=== PATIENT | female | born 1940 | race Caucasian/White ===

== ENCOUNTER → 2021-05-04 13:37 | Outpatient (CLI) | payer MEDICARE, SELFPAY ==
--- NOTE | ~2021-05-04 | XR_ITS ---
EXAMINATION: XR knee RT 3V DATE: 05/04/2021 14:10 INDICATION: Pain in unspecified knee. TECHNIQUE: 3 views of right knee including standing views were obtained. COMPARISON: Right knee radiograph 09/12/2017 FINDINGS: There is a total right knee arthroplasty with patellar resurfacing in near-anatomic alignme nt. No fracture. No periprosthetic lucencies to suggest loosening or infection. No knee joint effusio n. IMPRESSION: 1. Total right knee arthroplasty in near-anatomic alignment. Reviewed, dictated and finalized at location E. NCIAL COACH
== END ==
PROVIDERS: Visit Provider Emergency Medicine
DX: M25.569 Pain in unspecified knee (principal); R53.1 Weakness; Z96.651 Presence of right artificial knee joint
CPT/HCPCS: 73562

== ENCOUNTER 2021-05-05 09:42 | Observation (INO) | payer MEDICARE, SELFPAY ==
[2021-05-05] VITALS (12 sets, daily range): BP systolic 122–174; BP diastolic 57–78; PULSE 70–91; RESP 13–21; TEMP 36.1–36.9; O2SAT 92–97; BMI 104.9
--- NOTE | ~2021-05-05 | CT_ITS ---
EXAMINATION: CT chest abdomen pelvis w con DATE: 05/05/2021 15:41 INDICATION: Mass in left lung upper lobe. TECHNIQUE: Computed tomography (CT) of the chest, abdomen, and pelvis was performed with 100 mL Omnip aque 350 intravenous contrast. Automated exposure control and iterative reconstruction technique were employed. The dose-length product was 1951.95 mGy-cm. COMPARISON: Chest single view 05/05/2021, mammogram 03/27/19 FINDINGS: CHEST CT: The lungs demonstrate mild atelectasis. There is an 8 mm nodule in left lower lobe. There is a 4 mm n odule in left upper lobe. There is a 19 mm nodule in left upper lobe. No pleural effusion. The heart size is normal. There are coronary artery calcifications. No pericardial effusion. There is a small s liding hernia. There are surgical changes in left breast. There is skin thickening of left breast wit h skin retraction, likely chronic. There is severe cervical and thoracic spondylosis. ABDOMEN/PELVIS CT: There are cysts in the liver measuring up to 17 mm. The gallbladder, spleen, pancreas, and adrenal gl ands are normal. There is cortical thinning of the kidneys. There is are cysts in right kidney measur ing up to 4.6 cm. There is diverticulosis of the colon without evidence of diverticulitis. There are no dilated loops of bowel. The appendix is normal. There are no pathologically enlarged lymph nodes. There is no free intraperitoneal fluid. There is a total left hip arthroplasty. There is severe lumba r spondylosis. IMPRESSION: 1. 19 mm and 8 mm nodules in left lung suspicious for malignancy. Consider CT-guided biopsy of the 19 mm nodule. Reviewed, dictated and finalized at location E. RONMENTAL CONFLICT MANAGER IMPRESSION: 1. 19 mm and 8 mm nodules in left lung suspicious for malignancy. Consider CT-g uided biopsy of the 19 mm nodule.
--- NOTE | ~2021-05-05 | CT_ITS ---
EXAMINATION: CTA brain carotid EXAM DATE: 05/05/2021 12:38 INDICATION: Facial droop TECHNIQUE: Spiral CTA of the carotid arteries was performed with intravenous injection 100 cc of Om nipaque 350. Axial, coronal, sagittal reformatted images reviewed. Additional reformatted images cre ated on dedicated 3-D workstation. NASCET comparable standard used to assess the degree of arterial stenosis. Spiral CT angiogram cerebral arteries performed with the same intravenous injection of con trast. Source images of the brain CTA transferred to dedicated workstation for 3-D rotational image c reation. Coronal, sagittal maximum intensity pixel images also reviewed. The dose-length product (D LP) for this examination was 1152.76 mGy-cm. The exposure was tailored according to patient size, a nd iterative reconstruction (ASIR) was used as additional dose reduction technique. Correlation is ma de to head CT earlier same date. FINDINGS: Mild left carotid bulb arteriosclerosis, 0% carotid stenosis bilaterally. The right vertebral artery is dominant. Mild scattered vertebral basilar and intracranial carotid arteriosclerosis without steno sis. There is left-sided posterior communicating artery dominant posterior cerebral artery. There i s no carotid or vertebral basilar arterial dissection or fibromuscular dysplasia. There are no cerebr al artery aneurysms. There is symmetric cerebral artery arborization. The sagittal, transverse and si gmoid sinuses enhance normally, no venous sinus thrombosis. Internal cerebral veins also enhance norm ally. 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 Cervical spondylosis. IMPRESSION: 1. Spiculated left upper lobe mass; CT-guided biopsy indicated. 2. Bilateral carotid bulb 0% stenosis. 3. No acute carotid or intracranial findings. Reviewed, dictated and finalized at location B. SOFTWARE DEVELOPER
--- NOTE | ~2021-05-05 | US_ITS ---
EXAMINATION: US carotid duplex BI DATE: 05/05/2021 14:33 INDICATION: Facial droop . Speech-language deficit, facial weakness, disturbance of skin sensation an d unspecified hemiparesis. TECHNIQUE: Grayscale, color Doppler, and pulsed Doppler images of the cervical carotid arteries were obtained. The degree of vessel stenosis is placed in one of the following categories: normal, <50%, 5 0-69%, >=70% but less than near-occlusion, near-occlusion, or total occlusion. Note that percent sten osis relative to normal distal artery lumen diameter is indirectly measured from velocity measurement s as described by Miller, et al. Radiology 2003; 229:340-346. COMPARISON: Carotid CT angiogram dated 05/05/2021 FINDINGS: RIGHT: The right common carotid artery (CCA) peak systolic velocity (PSV) is 117 cm/s. The right internal ca rotid artery (ICA) PSV is 61 cm/s. The right ICA end-diastolic velocity (EDV) is 10 cm/s. The right I CA/CCA PSV ratio is 0.5. Grayscale and color Doppler images yield an estimate of <50% diameter reduct ion from plaque in the ICA. The external carotid artery (ECA) PSV is 103 cm/s. There is antegrade bell w in the right vertebral artery. LEFT: The left CCA PSV is 141 cm/s. The left ICA PSV is 75 cm/s. The left ICA EDV is 11 cm/s. The left ICA/ CCA PSV ratio is 0.5. Grayscale and color Doppler images yield an estimate of <50% diameter reduction from plaque in the ICA. The ECA PSV is 84 cm/s. There is antegrade flow in the left vertebral artery . IMPRESSION: 1. <50% stenosis in the right internal carotid artery. 2. <50% stenosis in the left internal carotid artery. Reviewed, dictated and finalized at location A. E ASSEMBLER AND SWAGER
--- NOTE | ~2021-05-05 | MR_ITS ---
EXAMINATION: MR brain/brain stem wo/w con DATE: 05/05/2021 17:25 INDICATION: Facial weakness. TECHNIQUE: Magnetic resonance imaging (MRI) of the brain and brainstem was performed without and with 20 mL MultiHance intravenous contrast. Sequences included sagittal and axial T1-weighted FSE, axial diffusion-weighted FS EPI, axial T2*-weighted GRE, axial T2-weighted FLAIR Propeller, and axial T2-we ighted Propeller. Postcontrast sequences included axial and coronal T1-weighted FSE. Apparent diffusi on coefficient (ADC) maps were created. COMPARISON: Head CT 05/05/2021 FINDINGS: There is an acute infarct in the wilfrid on the left. There is a punctate acute infarct in rig ht parietal lobe. There are scattered areas of nonspecific increased T2-weighted signal intensity in the cerebral white matter, which is within normal limits for the patient's age. There is no intracran ial hemorrhage or abnormal mass lesion. The ventricles are normal in size. There are likely changes o f ocular lens replacement surgeries. There is mild mucosal thickening in the ethmoid sinuses. The mas toid air cells are normal. IMPRESSION: 1. 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 Reviewed, dictated and finalized at location E. TLE INSPECTOR
--- NOTE | ~2021-05-05 | XR_ITS ---
EXAMINATION: XR chest 1V EXAM DATE: 05/05/2021 10:21 INDICATION: Slurred speech and facial droop, CVA TECHNIQUE: Portable AP frontal chest x-ray was obtained. There is no prior study for comparison. FINDINGS: There is ill-defined approximately 1.5 cm density projecting over left upper lobe, could be acute infectious process or intraparenchymal lung nodule, granuloma or malignancy. There are no ple ural effusions. The cardiomediastinal silhouette is within normal limits. There is no pneumothorax suspected. 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 IMPRESSION: Left upper lobe nodular density, differential considerations including acute infection, g ranuloma, malignancy. Clinical correlation. Consider follow-up PA and lateral chest x-ray in 2 weeks. Reviewed, dictated and finalized at location B. BASIC IMPRESSION: Left upper lobe nodular density, differential considerations includ ing acute infection, granuloma, malignancy. Clinical correlation. Consider foll ow-up PA and lateral chest x-ray in 2 weeks.
--- NOTE | ~2021-05-05 | CT_ITS ---
EXAMINATION: CT brain wo con EXAM DATE: 05/05/2021 10:14 INDICATION: Slurred speech, facial droop. Right leg weakness. TECHNIQUE: Spiral CT of the head was performed without contrast. Axial, coronal and sagittal images were reviewed. The dose-length product (DLP) for this examination was 605.33 mGy-cm. The exposure w as tailored according to patient size, and iterative reconstruction (ASIR) was used as additional dos e reduction technique. There are no prior studies for comparison. FINDINGS: There is no acute intraparenchymal hemorrhage. No evidence of intraparenchymal brain mass lesion. No evidence of acute infarction. There is no mass effect or midline shift. The ventricles are normal in size. There are no extra-axial collections. There are no acute calvarial fractures. P rosalina has had bilateral ocular lens surgery. Soft tissue is unremarkable. The visualized sinuses a nd mastoid air cells are well aerated. IMPRESSION: No acute intracranial findings. Reviewed, dictated and finalized at location B. OAT CAPTAIN
[2021-05-05 09:53] LABS: Glucose Point of Care 164 mg/dl (65-105)
--- NOTE | 2021-05-05 09:57 | ECG_ITS ---
Measurements Intervals [place] Rate: 90 P: 9 OR: 146 QRS: -33 QRSD: 106 T: 17 QT: 356 QTc: 437 Interpretive Statements SINUS RHYTHM LEFT AXIS DEVIATION POOR R WAVE PROGRESSION, ANTERIOR LEADS BORDERLINE ST-T WAVE ABNORMALITY- HIGH LATERAL LEADS BASELINE ARTIFACT- I, II, III, AVR, AVL, AVF BORDERLINE ECG Electronically Signed On 05-05-2021 10:20:58 EXEC. CREATIVE DIRECTOR by Aguila Garcia D.O.
[2021-05-05 10:12] LABS: Basophils Absolute Auto 0.1 K/mm3 (0.0-0.1); Basophils Percent Auto 0.6 % (0.2-1.2); Hematocrit 43.4 % (37.0-47.0); Hemoglobin 13.6 g/dL (12.0-15.0); Immature Granulocyte Absolute 0.13 K/mm3 (0.00-0.031); Immature Granulocyte Percent A 1.1 % (0-0.5); Lymphocytes Absolute Auto 3.09 K/mm3 (0.9-3.2); Lymphocytes Percent Auto 26.4 % (18.3-44.2); Mean Corpuscular HGB Conc 31.3 g/dl (32-36); Mean Corpuscular Hemoglobin 27.8 pg (26-34); Mean Corpuscular Volume 88.8 fl (80-100); Mean Platelet Volume 9.7 fl (7.4-10.4); Monocytes Absolute Auto 0.7 K/mm3 (0.1-0.6); Monocytes Percent Auto 5.8 % (2.6-8.5); Neutrophils Absolute Auto 7.7 K/mm3 (1.3-6.7); Neutrophils Percent Auto 66.1 % (45.5-73.1); Platelet Count Result 323 k/mm3 (150-375); Red Blood Count 4.89 M/mm3 (4.2-5.4); Red Cell Distribution Width 14.2 % (11.5-14.5); White Blood Count 11.7 K/mm3 (4.5-10.0)
[2021-05-05 10:25] LABS: Alanine Aminotransferase 19 U/L (4-35); Albumin Level 4.6 g/dL (3.5-5.1); Alkaline Phosphatase 91 U/L (38-126); Anion Gap 11 mmol/L (8-16); Aspartate Amino Transferase 24 U/L (14-36); Bilirubin,Total 0.4 mg/dL (0.2-1.3); Blood Urea Nitrogen 19 mg/dL (7-17); Calcium 9.6 mg/dL (8.4-10.2); Carbon Dioxide 23 mmol/L (22-30); Chloride 103 mmol/L (98-107); Estimated CRCL calculation 69 ml/min; Estimated Glomerular Filt Rate > 60; Glucose 175 mg/dL (65-110); Potassium 3.8 mmol/L (3.4-5.0); Sodium 137 mmol/L (137-145)
[2021-05-05 10:32] LABS: Prothrombin Time 13.1 Seconds (11.1-14.7)
[2021-05-05 10:36] LABS: Troponin I < 0.012 ng/mL (0.000-0.034)
[2021-05-05 10:46] LABS: Partial Thromboplastin Time < 20.0 SECONDS (22.3-36.8)
--- NOTE | 2021-05-05 12:09 | ED.NEUROSD ---
HPI - Neuro Symptoms/Deficit General Chief Complaint: Suspected CVA Stated Complaint: ?CVA Time Seen by Provider: 05/05/21 10:54 History of Present Illness HPI Narrative: Patient is a 80-year-old female who presents ER with concerns for possible CVA. Reports she had right leg weakness?that she called her PCP about and he ordered an outpatient x-ray. She reports her strength not like improved throughout the day yesterday. Reports that today she had right-sided facial droop with slurred speech. Lasted approximately 1 hour. Still has some mild weakness in the right side. No numbness or tingling. No history of previous CVA. No chest pain or chest pressure. No loss of consciousness. Related Data Home Medications Medication Instructions Recorded Confirmed blood sugar diagnostic #10 each 05/05/19 05/05/21 loratadine 10 mg tablet 10 mg PO DAILY 12/23/19 05/05/21 Allergies Allergy/AdvReac Type Severity Reaction Status Date / Time No Known Allergies Allergy Verified 05/05/21 17:51 Review of Systems Review of Systems: All systems reviewed & are unremarkable except as noted in HPI and below Constitutional: Constitutional: Denies chills, Denies fever(s) and Denies weakness ENT: Denies sinus pressure and Denies sore throat Cardiovascular: Cardiovascular: Denies chest pain and Denies rapid heart rate Respiratory: Respiratory: Denies cough, Denies dyspnea and Denies wheezing Gastrointestinal: Gastrointestinal: Denies abdominal pain, Denies diarrhea, Denies nausea and Denies vomiting Neurologic: Denies syncope, Denies tingling and Denies paresthesias Comments: Right-sided facial droop and slurred speech PMFSH Past Medical History Medical History Diabetes mellitus HTN (hypertension) Hx of breast cancer chemo and radiation Hx of cataract Hx of thyroid cancer Hypothyroidism (acquired) Surgical History Surgical History H/O lumpectomy H/O thyroidectomy History of bilateral knee replacement History of left hip replacement History of tonsillectomy Hx of bilateral cataract extraction Family History Family History Father Acute myocardial infarction, Onset Age: 84 Mother Family history of malignant neoplasm, Onset Age: 64 Social History Social History Social History: She is and lives alone with her cat. She has 2 children and no poa. She still continues to work for [employer]. She is a lifelong nonsmoker. She does not use any alcohol marijuana or illicit drugs. Code status full code Smoking status: Never smoker Alcohol intake: never Substance use: never Substance use type: does not use Spiritual care concerns: No Exam Narrative: GENERAL: Well-appearing, well-nourished, and in no acute distress. HEAD: Normocephalic, atraumatic. EYES: PERRLA and EOMI. ENT: Mucous membranes moist. Normal-appearing posterior oropharynx. CHEST: Clear to auscultation. No respiratory distress. HEART: Regular rate and rhythm. Normal peripheral pulses. ABDOMEN: Soft, nontender, nondistended EXTREMITIES: Normal range of motion. No edema. SKIN: Warm, dry, no rash. NEURO: Very mild right-sided facial weakness with patient speaking a left-sided mouth. No slurred speech or expressive aphasia. No upper or lower extremity drift. Sensation intact. Normal [id number] and [id number] testing. Alert and oriented x3. PSYCH: Normal mood and affect. Course Course Emergency Course: Neurology consulted. Recommends oral aspirin. Patient not felt to be a good candidate for TPA given very mild facial droop. Patient also had symptoms yesterday that could represent stroke and should be beyond 4 hours past those symptoms. Discussed this with patient and daughter who agree that they
[2021-05-05] MEDS: ASPIRIN 325 MG TABLET PO (12:25)
--- NOTE | 2021-05-05 12:56 | PM.IMHP ---
H&P: HPI History of Present Illness Date/Time: 05/05/21 12:56 this is a 80-year-old female patient who was having difficulty walking yesterday. She stated that she was having some weakness to her right leg. She has had a history of having a total right knee replacement in the past. Her strength did not improve throughout the day yesterday however it is much better today. She stated it feels like her normal strength in that leg today. However she reported that she had some right-sided facial droop and slurred speech earlier today. It lasted approximately 1 hour she still has a mild droop to the right side of her face but has symmetric smile. She has no focal weakness. No prior history of CVA. The patient states that she takes a low-dose aspirin every day. She did not lose consciousness. She had a head and neck CTA that was read as spiculated left upper lobe mass CT-guided biopsy indicated. Bilateral carotid bulb 0% stenosis no acute carotid or intracranial findings. This was discussed with the patient. She stated that she did have a history of thyroid and breast cancer on the left side. Chest x-ray was read as left upper lobe nodular densities differential consideration including acute infection, granuloma, malignancy. Clinical correlation. Consider follow-up PA and lateral chest x-ray in [address] was read as no acute intracranial findings. She had a knee x-ray that was dated 07/23/2019 to that reads total right knee arthroplasty in near anatomic alignment. The patient was given a full-strength aspirin. The patient is being admitted to observation status on the date of service of 05/05/2021. Chief Complaint: Stroke-like symptoms with facial droop Review of Systems Review of Systems: All systems reviewed & are unremarkable except as noted in HPI and below Constitutional: Constitutional: Reports as per HPI and Reports no additional constitutional complaints Eyes: Eyes: Reports as per HPI and Reports no additional eye complaints ENT: Reports system reviewed and no additional complaints, except as documented and Reports Normal hearing present Cardiovascular: Cardiovascular: Reports no additional cardiovascular complaints Respiratory: Respiratory: Reports no additional respiratory complaints and Reports no additional respiratory complaints Gastrointestinal: Gastrointestinal: Reports as per HPI and Reports no additional gastrointestinal complaints Musculoskeletal: Musculoskeletal: Reports no additional musculoskeletal complaints Integumentary/Breasts: Skin/Breast: Reports system reviewed and no additional complaints, except as docu and Reports as per HPI Neurologic: Reports system reviewed and no additional complaints, except as documented, Reports as per HPI and Reports Normal hearing present Psychiatric: Psychiatric: Reports no additional psychiatric complaints and Reports as per HPI Endocrine: Endocrine: Reports no additional endocrine complaints Hematologic/Lymphatic: Hematologic/Lymphatic: Reports no additional hematologic/lymphatic complaints Allergic/Immunologic: Allergic/Immunologic: Reports no additional allergic/immunologic complaints PMFSH Past Medical History Medical History Diabetes mellitus HTN (hypertension) Hx of breast cancer chemo and radiation Hx of cataract Hx of thyroid cancer Hypothyroidism (acquired) Surgical History Surgical History (Updated 05/05/21 @ 13:00 by Linda Claros NP) H/O lumpectomy H/O thyroidectomy History of bilateral knee replacement History of left hip replacement History of tonsillectomy Hx of bilateral cataract extraction Family History Family History Father Acute myocardial infarction, Onset Age: 84 Mother Family history of malignant neoplasm, Onset Age: 64 Social History Social History (Updated 05/05/21 @ 14:44 by Linda Ruiz
[2021-05-05 13:58] LABS: SARS-CoV-2 RNA PCR Negative
--- NOTE | 2021-05-05 16:35 | ADMGEN ---
This patient, Selina Qiu, was admitted to 3 [facility] Surg Room 304-01. Patient/family oriented to hospital policies and general routines including ID bracelet, bed and alarms, visiting hours, pain management, procedures, bathroom and other care routines, personal items, smoking policy, room service/diet, and visiting hours. Pt placed on groundwater monitoring technician per MD orders. Reviewed plan of care Information on how to activate the Rapid Response Team has been discussed. Patient/Family are encouraged to report perceived risks to care and to ask questions if they do not understand what they are told or what they should do.
--- NOTE | 2021-05-05 16:35 | WPDNEURCNPN ---
Assessment and Plan Additional Plan 1 TIA 2 .rule out brain tumor 3. Plan as ordered Consult date: 05/06/21 HPI: Selina Qiu is a 80 year old female admitted to the hospital through the emergency room for the possibility of cerebrovascular accident and with complaints of right lower extremity weakness for which she initially called the primary care physician who ordered thet evaluation as an outpatient, she visited the emergency room when she developed a right-sided facial droop along with slurred speech lasting for [id number] with mild weakness on the right side as well but no sensory symptomatology and no associated generalized symptomatology. Patient has been taking Tylenol as an outpatient along with loratadine. she is not allergic to any medication. Patient does have ongoing history of 1. Diabetes mellitus 2. Hypertension 3. Breast cancer with the history of chemotherapy and radiation therapy 4. Thyroid cancer and 5. Hypothyroidism. She has undergone lumpectomy, thyroidectomy, bilateral knee replacement, left hip replacement, tonsillectomy, and bilateral cataract extraction. Evaluation up until now includes negative CT scan of the head, negative CTA of the brain with no stenosis but incidental finding of his spiculated left upper lobe mass for which biopsy was suggested, less than 50% stenosis bilaterally on the carotid ultrasound, and CT of the chest, abdomen and pelvis with contrast documenting [id number] nodules in left lung suspicious for the malignancy for which biopsy was suggested. SARS-CoV-2 id negative and blood sugar of 175 Review of Systems Review of Systems: All systems reviewed & are unremarkable except as noted in HPI and below PMFSH Past Medical History Medical History Diabetes mellitus HTN (hypertension) Hx of breast cancer chemo and radiation Hx of cataract Hx of thyroid cancer Hypothyroidism (acquired) Surgical History Surgical History H/O lumpectomy H/O thyroidectomy History of bilateral knee replacement History of left hip replacement History of tonsillectomy Hx of bilateral cataract extraction Family History Family History Father Acute myocardial infarction, Onset Age: 84 Mother Family history of malignant neoplasm, Onset Age: 64 Social History Social History Social History: She is and lives alone with her cat. She has 2 children and no poa. She still continues to work for [employer]. She is a lifelong nonsmoker. She does not use any alcohol marijuana or illicit drugs. Code status full code Smoking status: Never smoker Alcohol intake: never Substance use: never Substance use type: does not use Spiritual care concerns: No Meds Home Medications and Allergies Home Medications Medication Instructions Recorded Confirmed Type blood sugar diagnostic #10 each 05/05/19 05/05/21 History blood-glucose meter #1 each 05/06/19 05/05/21 Rx loratadine 10 mg tablet 10 mg PO DAILY 12/23/19 05/05/21 History amlodipine 5 mg tablet See Rx Instructions .ROUTE 06/01/20 05/05/21 Rx .COMPLEX #90 each levothyroxine 175 mcg tablet See Rx Instructions .ROUTE 08/09/20 05/05/21 Rx .COMPLEX #90 ea metformin 500 mg tablet See Rx Instructions .ROUTE 11/29/20 05/05/21 Rx .COMPLEX #180 tablet montelukast 10 mg tablet 10 mg PO DAILY #90 tablet 02/14/21 05/05/21 Rx losartan 50 mg-hydrochlorothiazide 1 tablet PO .daily am #90 tablet 03/01/21 05/05/21 Rx 12.5 mg tablet cholecalciferol (vitamin D3) 1,250 50,000 unit PO WEEKLY #12 cap 03/07/21 05/05/21 Rx mcg (50,000 unit) capsule Allergies Allergy/AdvReac Type Severity Reaction Status Date / Time No Known Allergies Allergy Verified 05/05/21 17:51 Vital Signs Vital Signs
--- NOTE | 2021-05-05 16:48 | PC.NURSE ---
Pt to MRI via wheelchair, will complete interview when pt returns
[2021-05-05 16:51] LABS: Glucose Point of Care 123 mg/dl (65-105)
--- NOTE | 2021-05-05 17:35 | PC.NURSE ---
Pt returned from MRI
[2021-05-05 21:16] LABS: Glucose Point of Care 109 mg/dl (65-105)
[2021-05-06] VITALS (9 sets, daily range): BP systolic 124–144; BP diastolic 59–68; PULSE 69–83; RESP 18–20; TEMP 36.5–36.9; O2SAT 95–97
--- NOTE | 2021-05-06 | ECHO_ITS ---
Patient Info Name: Selina Qiu Age: 80 years : 1940 Gender: Female Ht: 65 in Wt: 300 lbs BSA: 2.58 m2 HR: 84 bpm BP: 144 / 59 mmHg Heart Rhythm: Sinus Rhythm Technical Quality: Fair Exam Date: 05/06/2021 9:07 AM Exam Location: [facility] Pulmonary Patient Status: Outpatient Admit Date: 05/05/2021 Staff Ordering Physician: Linda Claros NP Reimbursement Spec: Sri Tavares RDCS Attending Provider: Altaf Mckeon MD Referring Physician: Harlan EAGLE; Exam Type: CA echo dop bubble study w con Study Info Indications - tia Complete two-dimensional, color flow and Doppler transthoracic echocardiogram is performed. Summary 1. Complete two-dimensional, color flow and Doppler transthoracic echocardiogram is performed. 2. Left ventricular chamber dimension is normal. 3. Definity contrast administered improved wall motion interpretation. 4. Left ventricular systolic function is hyperdynamic, estimated at >70%. 5. The left ventricular diastolic function is grade I diastolic dysfunction. 6. E/e' 10 is mildly elevated. 7. There is mild aortic valve sclerosis. 8. The mitral valve has severely calcified posterior annulus. 9. No pulmonary hypertension, estimated pulmonary arterial systolic pressure is 25 mmHg. Left Ventricle E/e' 10 is mildly elevated. Definity contrast administered improved wall motion interpretation. Left ventricular chamber dimension is normal. Left ventricular systolic function is hyperdynamic, estimated at >70%. The left ventricular diastolic function is grade I diastolic dysfunction. Right Ventricle Right ventricular systolic function is normal and with normal TAPSE 2.7 cm. Right ventricular chamber dimension is normal. Left Atria Left atrial chamber dimension is mildly enlarged. Right Atria Right atrial chamber dimension is normal. Atrial Septum Agitated saline injection with and without valsalva maneuver opacified right sided cardiac chambers without shunt to left side cardiac chambers. Intact interatrial septum visualized by 2D and agitated saline imaging. Aortic Valve The aortic valve is trileaflet. There is mild aortic valve sclerosis. There is no aortic valve stenosis. There is no aortic valve regurgitation. Pulmonic Valve There is no pulmonic regurgitation. Mitral Valve The mitral valve has severely calcified posterior annulus. Mitral valve leaflets are not well seen. There is no mitral valve stenosis. There is no mitral valve regurgitation. Tricuspid Valve There is no tricuspid valve regurgitation. No pulmonary hypertension, estimated pulmonary arterial systolic pressure is 25 mmHg. Pericardium/Pleural There is no pericardial effusion. Inferior Vena Cava Normal inferior vena cava with >50% collapse upon inspiration consistent with normal right atrial pressure, 5 mmHg. Aorta The aortic root size at the sinus of Valsalva is normal. Left Ventricular Outflow Tract Name Value Normal LVOT 2D LVOT Diameter 2.0 cm LVOT Doppler LVOT Peak Gradient 6 mmHg LVOT Mean Gradient 3 mmHg
[2021-05-06 06:18] LABS: Basophils Absolute Auto 0.1 K/mm3 (0.0-0.1); Basophils Percent Auto 0.8 % (0.2-1.2); Hematocrit 39.3 % (37.0-47.0); Hemoglobin 12.3 g/dL (12.0-15.0); Immature Granulocyte Absolute 0.07 K/mm3 (0.00-0.031); Immature Granulocyte Percent A 0.8 % (0-0.5); Lymphocytes Percent Auto 22.4 % (18.3-44.2); Mean Corpuscular HGB Conc 31.3 g/dl (32-36); Mean Corpuscular Hemoglobin 27.8 pg (26-34); Mean Corpuscular Volume 88.7 fl (80-100); Mean Platelet Volume 9.7 fl (7.4-10.4); Monocytes Absolute Auto 0.6 K/mm3 (0.1-0.6); Monocytes Percent Auto 6.5 % (2.6-8.5); Neutrophils Absolute Auto 6.2 K/mm3 (1.3-6.7); Neutrophils Percent Auto 69.5 % (45.5-73.1); Platelet Count Result 243 k/mm3 (150-375); Red Blood Count 4.43 M/mm3 (4.2-5.4); Red Cell Distribution Width 14.3 % (11.5-14.5); White Blood Count 8.9 K/mm3 (4.5-10.0)
[2021-05-06 06:28] LABS: Hemoglobin A1C 6.4 % (<5.7)
[2021-05-06 06:34] LABS: Alanine Aminotransferase 14 U/L (4-35); Alkaline Phosphatase 82 U/L (38-126); Anion Gap 8 mmol/L (8-16); Aspartate Amino Transferase 19 U/L (14-36); Bilirubin,Total 0.5 mg/dL (0.2-1.3); Blood Urea Nitrogen 14 mg/dL (7-17); CRP 1.1 mg/dL (<1.0); Calcium 9.3 mg/dL (8.4-10.2); Carbon Dioxide 30 mmol/L (22-30); Chloride 100 mmol/L (98-107); Estimated CRCL calculation 116 ml/min; Estimated Glomerular Filt Rate > 60; Glucose 144 mg/dL (65-110); Magnesium 2.2 mg/dL (1.6-2.3); Sodium 138 mmol/L (137-145)
[2021-05-06 07:42] LABS: Thyroid Stimulating Hormone Reflex 0.158 uIU/mL (0.465-4.68)
[2021-05-06 08:12] LABS: Glucose Point of Care 144 mg/dl (65-105)
[2021-05-06 08:20] LABS: Free T4 Free Thyroxine Reflex 1.63 ng/dL (0.78-2.19)
[2021-05-06] MEDS: ASPIRIN 325 MG TABLET PO (09:01)
[2021-05-06] MEDS: PERFLUTREN LIPID MICROSPHERES 1.5 ML VIAL DILUTED TO 10 ML TOTAL VOLUME IV PUSH (09:50)
--- NOTE | 2021-05-06 09:50 | IVDEFINITY ---
Prior to administration of IV Definity the patient was educated on the risks and benefits of the imaging enhancing agent including potential adverse side effects. The patient verbalized understanding. Allergies were verified. No exclusion criteria were identified and at least one of the following inclusion criteria were met: 1) physician request, 2) patient technically difficult to image (per the [place] [employer] guidelines of two or more segments not discernable within the apical view), or 3) questionable left ventricular function. ?
--- NOTE | 2021-05-06 10:33 | PM.IMPN ---
Progress Note: A&P Assessment and Plan (1) Stroke-like symptom: Code(s): R29.90 - Unspecified symptoms and signs involving the nervous system Status: Acute Assessment and Plan: Neurology consulted Continue ASA CT of the brain did not show a CVA Echo pending Neuro checks q 4 hours Tele monitoring (2) Mass of left lung: Code(s): R91.8 - Other nonspecific abnormal finding of lung field Status: Acute Assessment and Plan: Consult to Dr. Chance , will await recommendations (3) Hypothyroidism (acquired): Code(s): E03.9 - Hypothyroidism, unspecified Status: Acute Assessment and Plan: TSH low Continue with levothyroxine Repeat labs in 6 weeks (4) HTN (hypertension): Code(s): I10 - Essential (primary) hypertension Status: Acute Assessment and Plan: Continue home dose of Norvasc and losartan Monitor (5) Diabetes mellitus: Code(s): E11.9 - Type 2 diabetes mellitus without complications Status: Acute Assessment and Plan: Accu-Cheks AC and HS Hold orals SSI Monitor (6) CVA (cerebral vascular accident): Code(s): I63.9 - Cerebral infarction, unspecified Status: Acute Assessment and Plan: MRI-->Acute infarcts involving the wilfrid and right parietal lobe Neurology consulted Continue ASA Statin initiated CT of the brain did not show a CVA Echo pending Neuro checks q 4 hours Tele monitoring Subjective Date/time seen: 05/06/21 10:33 Interval history: Pt seen and evaluated; labs, vs, diagnostic results reviewed; pt denies any weakness, BARNETT, SOB, CP; echo in progress Review of Systems Review of Systems: All systems reviewed & are unremarkable except as noted in HPI and below Exam Const: General: no acute distress, alert and awake Orientation/consciousness: patient oriented x3 HENMT: Head: normocephalic and atraumatic Ears: hearing grossly normal bilaterally and external ears normal Face and sinus: face symmetric Mouth: Yes Normal oral and palatal mucosa present Eyes: EOM: EOMs intact bilaterally Neck: Neck: full ROM, trachea midline and no JVD Resp: Effort & Inspection: normal respiratory effort Auscultation: clear to auscultation bilaterally Cardio: Jugular venous distension: no JVD Rate: regular rate Rhythm: regular rhythm Heart sounds: S1 normal heart sound present and S2 normal heart sound present GI: Inspection: obesity GI Palp: Yes Soft to palpation Auscultation: normal bowel sounds : General: Yes no CVA tenderness Skin: General skin exam: normal color Rashes: no rashes Neuro: General: patient oriented x3 and no focal motor deficits Speech: normal speech Extrem: General: full ROM and no clubbing, cyanosis or edema Psych: Appearance: grossly normal Affect: normal affect Judgement: Good judgement present (Psych) Objective Data Vital Signs Vital Signs: Vital Signs - 24 hr 05/05/21 10:51 05/05/21 12:01 05/05/21 12:47 Temperature Pulse Rate 81 82 83 Respiratory Rate 20 20 21 H Blood Pressure 150/70 H 159/72 H Pulse Oximetry 96 95 97 05/05/21 12:49 05/05/21 14:41 05/05/21 15:53 Temperature Pulse Rate 84 79 Respiratory Rate 19 18 Blood Pressure 145/65 H 148/67 H Pulse Oximetry 97 92 97 05/05/21 16:29 05/05/21 16:33 05/05/21 16:41 Temperature 36.1 C L Pulse Rate 83 81 86 Respiratory Rate 18 18 Blood Pressure 174/76 H 145/65 H Pulse Oximetry 97 97 05/05/21 20:00 05/05/21 23:51 05/06/21 00:00 Temperature 36.6 C 36.9 C Pulse Rate 70 77 69 Respiratory Rate 20 20 Blood Pressure 122/57 L 132/62 Pulse Oximetry 95 96 05/06/21 03:53 05/06/21 04:00 Temperature 36.5 C Pulse Rate 79 70 Respiratory Rate 20 Blood Pressure 144/59 H Pulse Oximetry 95 Intake/Output Intake/Output: Intake & Output 05/03/21 05/04/21 05/05/21 05/06/21 23:59 23:59 23:59 23:59 Intake Total 120 490 Output Total 0 1000 Balance 120 -510
[2021-05-06 11:50] LABS: Total Triiodothyronine (T3) 1.24 NG/ML (0.97-1.69)
--- NOTE | 2021-05-06 12:44 | PDONCCN ---
HPI - Date of Consult Date/Time: 05/06/21 12:44 Requesting Physician: Ramses Mckeon MD Primary Care Provider: Brody Bhatia MD - Consult Narrative Reason for consult: Lung mass Narrative: Selina Qiu is a 80 year old female with history of left-sided breast cancer status post lumpectomy 14 years ago. She receive chemotherapy and radiation therapy and hormonal therapy for 5 years duration afterwards. She also has a history of thyroid cancer more than 30 years ago status post thyroidectomy. She denies any personal history of smoking but has been exposed with secondhand smoking from has been. She came into the hospital with right-sided facial droop and slurring of the speech started day prior to admission. She has been taking low-dose aspirin. She denies any headaches and seizures. She denies any pulmonary symptoms including shortness of breath chest pain and cough. Denies any hemoptysis. No other new complaints. CT head showed no acute intracranial findings. Brain MRI showed acute infarct involving the wilfrid and the right parietal lobe. CT chest abdomen pelvis showed 19 mm and 8 mm nodules in the left lung suspicious for malignancy. CT abdomen showed no evidence of metastatic disease. Review of Systems - Review of Systems All systems reviewed & are unremarkable except as noted in HPI and bel - Neurologic Reports system reviewed and no additional complaints, except as documented, Reports hearing normal, Denies syncope, Denies tingling, Denies paresthesias, Denies weakness PMFSH Medical History: Medical History (Last Reviewed 05/06/21 @ 11:29 by Alvaro Lopez MD) Diabetes mellitus HTN (hypertension) Hx of breast cancer chemo and radiation Hx of cataract Hx of thyroid cancer Hypothyroidism (acquired) Surgical History: Surgical History (Last Reviewed 05/06/21 @ 11:29 by Alvaro Lopez MD) H/O lumpectomy H/O thyroidectomy History of bilateral knee replacement History of left hip replacement History of tonsillectomy Hx of bilateral cataract extraction Family History: Family History (Last Reviewed 05/06/21 @ 11:29 by Alvaro Lopez MD) Father Acute myocardial infarction, Onset Age: 84 Mother Family history of malignant neoplasm, Onset Age: 64 - Social History Social History: Social History (Last Reviewed 05/06/21 @ 11:29 by Alvaro Lopez MD) Alcohol Use: Alcohol intake: never Substance Use: Substance use: never Substance use type: does not use Others: Spiritual care concerns: No Smoking Status: Smoking status: Never smoker Meds Home Medications Medication Instructions Recorded Confirmed Type blood sugar diagnostic #10 each 05/05/19 05/05/21 History blood-glucose meter #1 each 05/06/19 05/05/21 Rx loratadine 10 mg tablet 10 mg PO DAILY 12/23/19 05/05/21 History amlodipine 5 mg tablet See Rx Instructions .ROUTE 06/01/20 05/05/21 Rx .COMPLEX #90 each levothyroxine 175 mcg tablet See Rx Instructions .ROUTE 08/09/20 05/05/21 Rx .COMPLEX #90 ea metformin 500 mg tablet See Rx Instructions .ROUTE 11/29/20 05/05/21 Rx .COMPLEX #180 tablet montelukast 10 mg tablet 10 mg PO DAILY #90 tablet 02/14/21 05/05/21 Rx losartan 50 mg-hydrochlorothiazide 1 tablet PO .daily am #90 tablet 03/01/21 05/05/21 Rx 12.5 mg tablet cholecalciferol (vitamin D3) 1,250 50,000 unit PO WEEKLY #12 cap 03/07/21 05/05/21 Rx mcg (50,000 unit) capsule Allergies Allergy/AdvReac Type Severity Reaction Status Date / Time No Known Allergies Allergy Verified 05/05/21 17:51 Results - Labs CBC & Chem 7: 05/06/21 06:11 05/06/21 06:11 Labs: Short CBC 05/06/21 Range/Units 06:11 WBC 8.9 (4.5-10.0) K/mm3 Hgb 12.3 (12.0-15.0) g/dL Hct 39.3 (37.0-47.0) % Plt Count 243 (150-375) k/mm3 BMP 05/06/21 06:11 Sodium 138 Potassium 4.0 Chloride 100 Carbon Dioxide 30 BUN 14 D Creatinine 0.8
[2021-05-06] MEDS: LOSARTAN POTASSIUM 50 MG TABLET PO (14:55)
[2021-05-06] MEDS: LORATADINE 10 MG TABLET PO (14:56)
[2021-05-06] MEDS: hydroCHLOROthiazide 12.5 MG CAPSULE PO (14:56)
[2021-05-06] MEDS: amLODIPine BESYLATE 5 MG TABLET PO (14:56)
[2021-05-06] MEDS: MONTELUKAST SODIUM 10 MG TABLET PO (14:56)
[2021-05-06 16:42] LABS: Glucose Point of Care 109 mg/dl (65-105)
[2021-05-07] VITALS: PULSE 67
[2021-05-07 04:00] VITALS: BP 130/63; PULSE 68; PULSE 74; RESP 20; TEMP 36.6; O2SAT 90
[2021-05-07 06:36] LABS: Hematocrit 37.7 % (37.0-47.0); Hemoglobin 12.1 g/dL (12.0-15.0); Mean Corpuscular HGB Conc 32.1 g/dl (32-36); Mean Corpuscular Hemoglobin 27.6 pg (26-34); Mean Corpuscular Volume 85.9 fl (80-100); Mean Platelet Volume 9.7 fl (7.4-10.4); Platelet Count Result 274 k/mm3 (150-375); Red Blood Count 4.39 M/mm3 (4.2-5.4); Red Cell Distribution Width 14.4 % (11.5-14.5); White Blood Count 8.3 K/mm3 (4.5-10.0)
[2021-05-07 06:42] LABS: Anion Gap 10 mmol/L (8-16); Blood Urea Nitrogen 15 mg/dL (7-17); Calcium 8.9 mg/dL (8.4-10.2); Carbon Dioxide 26 mmol/L (22-30); Chloride 99 mmol/L (98-107); Estimated CRCL calculation 132 ml/min; Estimated Glomerular Filt Rate > 60; Glucose 142 mg/dL (65-110); Potassium 3.6 mmol/L (3.4-5.0); Sodium 135 mmol/L (137-145)
[2021-05-07 08:00] VITALS: PULSE 69
[2021-05-07] MEDS: hydroCHLOROthiazide 12.5 MG CAPSULE PO (09:33)
[2021-05-07] MEDS: amLODIPine BESYLATE 5 MG TABLET PO (09:33)
[2021-05-07] MEDS: ASPIRIN 325 MG TABLET PO (09:33)
[2021-05-07] MEDS: MONTELUKAST SODIUM 10 MG TABLET PO (09:34)
[2021-05-07] MEDS: LOSARTAN POTASSIUM 50 MG TABLET PO (09:34)
[2021-05-07] MEDS: LORATADINE 10 MG TABLET PO (09:34)
[2021-05-07] MEDS: ATORVASTATIN 20 MG TABLET PO (09:35)
--- NOTE | 2021-05-07 10:35 | PM.DS ---
DS: Admitting Diagnosis Discharge Date 05/07/2021 Admitting Diagnosis Leg weakness DS: Discharge Diagnosis Discharge Diagnosis (1) Stroke-like symptom: Code(s): R29.90 - Unspecified symptoms and signs involving the nervous system Status: Acute Assessment and Plan: Neurology consulted Continue ASA CT of the brain did not show a CVA Echo negative for vegetation MRI shows acute infarct Aspirin statin follow-up with neurology as outpatient (2) Mass of left lung: Code(s): R91.8 - Other nonspecific abnormal finding of lung field Status: Acute Assessment and Plan: Consult to Dr. Chance , plan for lung biopsy as outpatient (3) Hypothyroidism (acquired): Code(s): E03.9 - Hypothyroidism, unspecified Status: Acute Assessment and Plan: TSH low Continue with levothyroxine Repeat labs in 6 weeks (4) HTN (hypertension): Code(s): I10 - Essential (primary) hypertension Status: Acute Assessment and Plan: Continue home dose of Norvasc and losartan Monitor (5) Diabetes mellitus: Code(s): E11.9 - Type 2 diabetes mellitus without complications Status: Acute Assessment and Plan: Resume home medication (6) CVA (cerebral vascular accident): Code(s): I63.9 - Cerebral infarction, unspecified Status: Acute Assessment and Plan: MRI-->Acute infarcts involving the wilfrid and right parietal lobe Neurology consulted Continue ASA Statin initiated DS: Summary Hospital Course Hospital Course: Patient presented with leg weakness was found to have acute stroke started on aspirin and statin neurology was consulted CTA showed lung mass Heme-Onc was consulted plan for lung biopsy as outpatient Time Spent with Patient Time attestation: Total time spent providing and/or coordinating discharge services: DS: Data Data Completed and Pending Labs on day of discharge: Labs from last 24 hours 05/07/21 05/07/21 05/06/21 05:34 05:34 16:12 WBC 8.3 RBC 4.39 Hgb 12.1 Hct 37.7 MCV 85.9 MCH 27.6 MCHC 32.1 RDW 14.4 Plt Count 274 MPV 9.7 Sodium 135 L Potassium 3.6 Chloride 99 Carbon Dioxide 26 Anion Gap 10 BUN 15 Creatinine 0.70 Estim Creat Clear Calc 132 Estimated GFR > 60 Glucose 142 H POC Capillary Glucose 109 H Calcium 8.9 Total T3 05/06/21 06:11 WBC RBC Hgb Hct MCV MCH MCHC RDW Plt Count MPV Sodium Potassium Chloride Carbon Dioxide Anion Gap BUN Creatinine Estim Creat Clear Calc Estimated GFR Glucose POC Capillary Glucose Calcium Total T3 1.24 Discharge Plan Discharge Attending physician on discharge: Ana Deng M.A. Consulting providers: Alvaro Lopez ; Saud Chance Discharging Clinician: Ana Deng M.A. Patient Disposition: Home, Self-Care Activity: as tolerated Diet: heart healthy and diabetic Patient Instructions: Antibiotic Form Stand Alone Forms: General Discharge Information Follow-up/Referrals: Saud Chance MD [Physician] - Brody Bhatia MD [Primary Care Provider] - Alvaro Lopez MD [Physician] - Discharge Medications: New aspirin 325 mg Tablet 325 mg PO DAILY@0800 Qty: 30 RF: 0 atorvastatin 20 mg Tablet 20 mg PO DAILY Qty: 30 RF: 0 Continued (DME) Freestyle [employer] Test Strips Strip See Rx Instructions .ROUTE .MEDSUPPLY Qty: 10 RF: 0 (DME) blood-glucose meter [Freestyle [employer]] Misc See Rx Instructions .ROUTE .MEDSUPPLY Qty: 1 RF: 0 loratadine [Claritin] 10 mg tablet 10 mg PO DAILY RF: 0 amlodipine 5 mg tablet See Rx Instructions .ROUTE .COMPLEX Qty: 90 RF: 2 levothyroxine 175 mcg tablet See Rx Instructions .ROUTE .COMPLEX Qty: 90 RF: 2 metformin 500 mg tablet See Rx Instructions .ROUTE .COMPLEX Qty: 180 RF: 3 montelukast 10 mg tablet 10 mg PO DAILY Qty: 90 RF: 1 los
[2021-05-07 11:57] LABS: Glucose Point of Care 142 mg/dl (65-105)
[2021-05-07 11:58] LABS: Glucose Point of Care 109 mg/dl (65-105)
== END 2021-05-07 13:25 | disposition home or self-care (01) ==
LOC: ANHED 13:31 → ANH3MEDSUR 16:10
PROVIDERS: Emergency Medicine; Nurse Practitioner; Nurse Practitioner Adult Health; Admitting Provider Internal Medicine; Emergency Provider Emergency Medicine; PCP Emergency Medicine; Visit Provider Internal Medicine
DX: I63.9 Cerebral infarction, unspecified (principal); R91.8 Other nonspecific abnormal finding of lung field; R53.1 Weakness; I10 Essential (primary) hypertension; E11.9 Type 2 diabetes mellitus without complications; E89.0 Postprocedural hypothyroidism; I65.23 Occlusion and stenosis of bilateral carotid arteries; I35.8 Other nonrheumatic aortic valve disorders; Z85.850 Personal history of malignant neoplasm of thyroid; Z85.3 Personal history of malignant neoplasm of breast; Z92.21 Personal history of antineoplastic chemotherapy; Z92.3 Personal history of irradiation; Z79.82 Long term (current) use of aspirin; Z96.651 Presence of right artificial knee joint; Z20.822 Contact with and (suspected) exposure to COVID-19
CPT/HCPCS: 36415; 70450; 70496; 70498; 70553; 71045; 71260; 74177; 80048; 80053; 82728; 82948; 83036; 83605; 83735; 84439; 84443; 84480; 84484; 85025; 85027; 85610; 85730; 86140; 93005; 93880; 96374; 96375; 97161; 97165; 99285; A9270; A9577; C8929; C9803; G0378; Q9957; Q9967; U0003; U0005

== ENCOUNTER 2021-05-26 02:30 | Outpatient (CLI) | payer MEDICARE, SELFPAY ==
[2021-05-18 13:47] VITALS: BMI 47.4
--- NOTE | 2021-05-18 13:53 | PC.NURSE ---
Report to the Outpatient Waiting Room, entrance under the green pavilion located off [facility], at time _0900 on date ___05/26/21____. OR Time: _1100 . - You and your visitor will be asked a series of questions to screen for COVID 19 for your protection. - A mask is required within the hospital. Preoperative COVID Testing Requirements: No COVID Test needed if: (proof is required; if not received patient will have Rapid Test prior to entry) - Patient has received COVID Vaccine at least 14 days prior to procedure date or - Patient has positive COVID test result within last 90 days of surgery date. COVID Test needed if above criteria is not met If not COVID vaccinated a COVID test must be conducted within 72 hours of surgery and patient is asked to isolate self from time of testing until procedure. You will go to the [facility] for your COVID testing. The [facility] site is located at the corner of [address] from [facility]. You will only be called if COVID results are positive and your surgeon may reschedule your elective surgery date. NOTHING TO EAT OR DRINK 6 HOURS PRIOR TO PROCEDURE (0500) Take the following medications with a SIP of water the morning of surgery: _ALL ROUTINE MORNING MEDICATIONS Medications to discontinue per physician ___ASPIRIN 7 DAYS PRE OP Date to take last dose_05/18/21 Please no make-up, nail bangladeshi, hairspray, perfume, deodorant, or body powder the day of surgery. No jewelry (including any body piercings) or valuables the day of surgery, leave them at home. Please take a shower or bath the night before, or the morning of, surgery with an antibacterial soap. Wear comfortable, loose fitting clothing. Children are encouraged to wear pajamas. - Jewelry must be removed prior to entering the operating room. Rings and piercings that are not removed may be cut off. - The hospital will not accept responsibility for valuables. - Please leave all valuables, including medications, at home the day of surgery. If you are going home after surgery, a licensed bus driver must drive you home. - NO public transportation without another adult. - We recommend that an adult stay with you for 24 hours following discharge. - We also recommend that you do not drive, make important decision, drink alcoholic beverages, or take any drugs that were not prescribed by your health care provider for at least 24 hours after your discharge time. For Pediatric surgeries, we recommend two adults accompany the child home (only one inside the building at this time). One visitor will be allowed to accompany the patient into the hospital. Patients visitor will be instructed to remain with patient at all times or leave the building. We will allow the visitor to come back to the postoperative area when patient is ready. Follow any additional instructions given to you from your surgeon. Telephone instructions given to ___PATIENT and asked if any additional questions and then verbalized understanding. Patient advised to call surgeon office or pre surgery nurse liaison [phone] if any additional questions.
[2021-05-26] VITALS (10 sets, daily range): BP systolic 99–163; BP diastolic 41–85; PULSE 72–97; RESP 16–18; TEMP 37.1; O2SAT 94–100
--- NOTE | ~2021-05-26 | XR_ITS ---
EXAMINATION: XR chest 1V portable DATE: 05/26/2021 14:48 INDICATION: Left lung nodule status post percutaneous biopsy. TECHNIQUE: A single frontal view of the chest was obtained. COMPARISON: Chest single view at 1:01 PM FINDINGS: There is a nodule in left upper lobe. No pleural effusion or pneumothorax. The heart size i s normal. IMPRESSION: 1. Nodule in left lung upper lobe suspicious for primary bronchogenic carcinoma. Reviewed, dictated and finalized at location A. RD FILING CLERK IMPRESSION: 1. Nodule in left lung upper lobe suspicious for primary bronchogenic carcinoma .
--- NOTE | ~2021-05-26 | XR_ITS ---
EXAMINATION: XR chest 1V portable DATE: 05/26/2021 13:09 INDICATION: Left lung nodule status post percutaneous biopsy. TECHNIQUE: A single frontal view of the chest was obtained. COMPARISON: Chest single view at 1:01 PM FINDINGS: There is a nodule in left lung upper lobe. There are mild airspace opacities in the mid and lower lung zones, likely atelectasis. No pleural effusion or pneumothorax. The heart size is normal. There are surgical clips in left axilla. IMPRESSION: 1. Nodule in left lung upper lobe suspicious for primary bronchogenic carcinoma. 2. Mild airspace opacities in the mid and lower lung zones, likely atelectasis. Reviewed, dictated and finalized at location A. ERCIAL TRAILER TRUCK DRIVER IMPRESSION: 1. Nodule in left lung upper lobe suspicious for primary bronchogenic carcinoma . 2. Mild airspace opacities in the mid and lower lung zones, likely atelectasis.
--- NOTE | ~2021-05-26 | CT_ITS ---
EXAMINATION: CT biopsy lung w/imaging DATE: 05/26/2021 11:50 INDICATION: Left lung nodule. TECHNIQUE: The procedure including the risks, benefits, and alternatives and possibility of chest tub e placement were discussed with the patient. Risks discussed included infection, approximately 1/20 r isk of symptomatic hemorrhage beyond mild hemoptysis, approximately 1/3 risk of pneumothorax, approxi mately 1/10 risk of pneumothorax severe enough to warrant chest tube placement, and rarely . The patient understood the risks and agreed to proceed. The patient was placed supine with left side lance vated. The skin overlying the left chest was prepped and draped in sterile fashion. Anesthetic was administered with 1% lidocaine subcutaneously. A 19 gauge outer needle was advanced under CT guidanc e to the lesion of interest. A 20 gauge core biopsy needle was then used to obtain 3 core biopsy spec imens. The needle was removed and the entry site was cleaned and dressed. The mA was adjusted accordi ng to patient size. Iterative reconstruction technique was employed. The dose-length product was 175. 76 mGy-cm. There were no immediate complications. FINDINGS: CT images demonstrate the outer needle tip adjacent to a 19 mm nodule in left upper lobe. IMPRESSION: 1. CT-guided core needle biopsy of a nodule in left lung upper lobe. Reviewed, dictated and finalized at location A. NT ACQUISITION OPERATIONS MANAGER
--- NOTE | ~2021-05-26 | XR_ITS ---
EXAMINATION: XR chest 1V DATE: 05/26/2021 11:54 INDICATION: Left lung nodule status post percutaneous biopsy. TECHNIQUE: A single frontal view of the chest was obtained on 2 radiographs. COMPARISON: Chest single view 05/05/2021 FINDINGS: There is a nodule in left lung upper lobe. There is mild elevation of right hemidiaphragm. There is mild atelectasis in the lower lung zones. No pleural effusion or pneumothorax. The heart siz e is normal. IMPRESSION: 1. Nodule in left lung upper lobe suspicious for primary bronchogenic carcinoma. Reviewed, dictated and finalized at location A. ESALE AGRONOMIST IMPRESSION: 1. Nodule in left lung upper lobe suspicious for primary bronchogenic carcinoma .
[2021-05-26 12:22] LABS: Glucose Point of Care 97 mg/dl (65-105)
--- NOTE | 2021-05-26 13:04 | SUR.PHASEII ---
1305 PORTABLE CHEST XRAY TAKEN IN OP RECOVERY.
--- NOTE | 2021-05-26 15:31 | SUR.PHASEII ---
1445 PORTABLE CHEST XRAY TAKEN IN OP RECOVERY.
== END 2021-05-26 15:10 | disposition home or self-care (01) ==
PROVIDERS: Radiology Diagnostic Radiology; PCP Emergency Medicine; Visit Provider Emergency Medicine
PROC: BB24ZZZ Computerized Tomography (CT Scan) of Bilateral Lungs (ICD-10-PCS; CPT 32408; principal; 2021-05-26 11:00)
DX: C80.1 Malignant (primary) neoplasm, unspecified (principal); C78.02 Secondary malignant neoplasm of left lung; Z51.81 Encounter for therapeutic drug level monitoring; Z79.899 Other long term (current) drug therapy
CPT/HCPCS: 32408; 71045; 82948; 88305; 88313; 88342

== ENCOUNTER 2021-07-22 08:36 | Outpatient (CLI) | payer MEDICARE, SELFPAY ==
--- NOTE | 2021-07-22 | ECHO_ITS ---
Patient Info Name: Selina Qiu Age: 80 years : 1940 Gender: Female Ht: 65 in Wt: 285 lbs BSA: 2.51 m2 HR: 73 bpm BP: 152 / 77 mmHg Technical Quality: Good Exam Date: 07/22/2021 9:21 AM Exam Location: [facility] Patient Status: Outpatient Admit Date: 07/22/2021 Staff Ordering Physician: Saud Chance MD Chiropractic Doctor: Danita George RDCS Attending Provider: Saud Chance MD Referring Physician: Robson CHATTERJEE; Exam Type: CA echo doppler color flow Study Info Indications - chest pain Complete two-dimensional, color flow and Doppler transthoracic echocardiogram is performed. Summary 1. Complete two-dimensional, color flow and Doppler transthoracic echocardiogram is performed. 2. Left ventricular chamber dimension is normal. 3. Left ventricular systolic function is normal, estimated at 65-70%. 4. There is mildly increased left ventricular wall thickness. 5. The left ventricular diastolic function is grade I diastolic dysfunction. 6. E/e' 9 is minimally elevated. 7. Left atrial chamber dimension is mildly enlarged. 8. There is mild aortic valve sclerosis. 9. The mitral valve has not well visualized and severely calcified posterior annulus and mildly calcified anterior annulus. 10. There is trace tricuspid valve regurgitation. 11. No pulmonary hypertension, estimated pulmonary arterial systolic pressure is 34 mmHg. Left Ventricle E/e' 9 is minimally elevated. Left ventricular chamber dimension is normal. Left ventricular systolic function is normal, estimated at 65-70%. There is mildly increased left ventricular wall thickness. The left ventricular diastolic function is grade I diastolic dysfunction. Right Ventricle Right ventricular chamber dimension is normal. Right ventricular systolic function is normal. Left Atria Left atrial chamber dimension is mildly enlarged. Right Atria Right atrial chamber dimension is normal. Aortic Valve The aortic valve is trileaflet. There is mild aortic valve sclerosis. There is no aortic valve stenosis. There is no aortic valve regurgitation. Pulmonic Valve There is no pulmonic regurgitation. Mitral Valve The mitral valve has not well visualized and severely calcified posterior annulus and mildly calcified anterior annulus. There is no mitral valve stenosis. There is no mitral valve regurgitation. Tricuspid Valve There is trace tricuspid valve regurgitation. No pulmonary hypertension, estimated pulmonary arterial systolic pressure is 34 mmHg. Pericardium/Pleural There is no pericardial effusion. Inferior Vena Cava Normal inferior vena cava with >50% collapse upon inspiration consistent with normal right atrial pressure, 5 mmHg. Aorta The aortic root size at the sinus of Valsalva is normal. Left Ventricular Outflow Tract Name Value Normal LVOT 2D LVOT Diameter 2.1 cm LVOT Doppler LVOT Peak Gradient 4 mmHg LVOT Mean Gradient 3 mmHg LVOT VTI 25 cm LVOT VTI/AV VTI Ratio 0.8 LVOT Stro
== END 2021-07-22 08:37 | disposition home or self-care (01) ==
LOC: ANHCARD 08:40
PROVIDERS: PCP Emergency Medicine; Visit Provider Internal Medicine Hematology & Oncology
DX: R07.89 Other chest pain (principal); I70.0 Atherosclerosis of aorta
CPT/HCPCS: 93306

== ENCOUNTER 2021-10-05 07:12 | Outpatient (CLI) | payer MEDICARE, SELFPAY ==
--- NOTE | ~2021-10-05 | CT_ITS ---
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 The dose-length product (DLP) was 899.53 mGy-cm. Ite rative reconstruction was used. COMPARISON: 05/05/2021 FINDINGS: There are stable nodules measuring 19 mm and 4 mm in left upper lobe. A 10 mm nodule of the left lower lobe has slightly increased in size. There is mild dependent atelectasis. No pleural effu yolanda or pneumothorax. No pathologically enlarged thoracic lymph nodes are identified. The heart size is normal. There is severe cervical spondylosis. Cysts are noted in the liver which measure up to 17 mm right hepatic lobe.. Cysts of the kidneys measure up to 4.3 cm on the right. There is a small medi al diaphragmatic hernia on the left containing fat. A small sliding hiatal hernia is also noted. IMPRESSION: 1. Left lung nodules, with increase in size of the left lower lobe nodule, consistent with metastatic disease. Reviewed, dictated and finalized at location A. IMPRESSION: 1. Left lung nodules, with increase in size of the left lower lobe nodule, cons istent with metastatic disease.
[2021-10-05 07:41] LABS: Estimated Glomerular Filt Rate 43
== END 2021-10-05 07:13 | disposition home or self-care (01) ==
PROVIDERS: PCP Emergency Medicine; Visit Provider Internal Medicine Hematology & Oncology
DX: C50.912 Malignant neoplasm of unspecified site of left female breast (principal); Z17.0 Estrogen receptor positive status [ER+]
CPT/HCPCS: 71260; Q9967

== ENCOUNTER 2022-02-13 07:56 | Outpatient (CLI) | payer MEDICARE, SELFPAY ==
--- NOTE | ~2022-02-13 | CT_ITS ---
EXAMINATION:CT diagnostic chest w con DATE: 02/13/2022 08:45 INDICATION: Malignant neoplasm of left breast in female. Estrogen receptor positive. TECHNIQUE: Computed tomography (CT) of the chest was performed with 75 mL Omnipaque 350 intravenous c ontrast. Automated exposure control and iterative reconstruction technique were employed. The dose-le ngth product (DLP) was 855.03 mGy-cm. COMPARISON: Chest CT 10/05/2021 FINDINGS: The lungs demonstrate mild atelectasis. There is a 14 mm nodule in left lower lobe that pre viously measured 11 mm. There is an 18 mm nodule in left upper lobe that previously measured 18 mm. N o pleural effusion. The heart size is normal. No pericardial effusion. There are cysts in the liver m easuring up to 15 mm. There is a 4.4 cm cyst in right kidney. There are surgical changes of left miki st. There is skin thickening of left breast, consistent with changes of radiation therapy. There is m oderate thoracic spondylosis. There are bridging endplate osteophytes at multiple levels in the spine , consistent with diffuse idiopathic skeletal hyperostosis (DISH). IMPRESSION: 1. Two pulmonary nodules with interval enlargement of one of the nodules, consistent with metastatic disease. Reviewed, dictated and finalized at location A. AL AND COMMUNICATIONS MAINTAINER IMPRESSION: 1. Two pulmonary nodules with interval enlargement of one of the nodules, consi stent with metastatic disease.
[2022-02-13 08:29] LABS: Estimated Glomerular Filt Rate 48
== END 2022-02-13 07:57 | disposition home or self-care (01) ==
PROVIDERS: PCP Emergency Medicine; Visit Provider Internal Medicine Hematology & Oncology
DX: C50.912 Malignant neoplasm of unspecified site of left female breast (principal); R91.8 Other nonspecific abnormal finding of lung field
CPT/HCPCS: 71260; Q9967

== ENCOUNTER 2022-03-16 08:15 | Outpatient (CLI) | payer MEDICARE, SELFPAY ==
--- NOTE | ~2022-03-16 | PE_ITS ---
EXAMINATION: PET skull to mid thigh DATE: 03/16/2022 10:06 INDICATION: Lung mass, history of breast cancer TECHNIQUE: Blood glucose level was 168 mg/dL. 7.572 mCi of 18-fluorodeoxyglucose (18-FDG) was adminis tered i.v. Low dose computed tomography (CT) images were acquired from the base of the brain to the p roximal thighs for attenuation correction and anatomic localization. Positron emission tomography (PE T) images were acquired in the same distribution beginning 50 minutes after injection. The dose-lengt h product (DLP) was 1281.70 mGy-cm. COMPARISON: 02/13/2022, 05/05/2021 FINDINGS: Head/neck: No abnormal FDG uptake is identified. Chest: There is a 1.8 x 1.6 cm nodule of the left upper lobe with abnormal FDG uptake and SUV max of 4.54. Previous CT-guided biopsy demonstrated metastatic carcinoma compatible with metastatic breast adenocarcinoma . Overall size is not significantly changed since the April comparison. A 1.6 x 1.2 cm nodule is present in the left lower lobe abutting the diaphragm on image 125 which demonstrates m inimal FDG uptake with an SUV max of 3.0. No pleural effusion or pneumothorax. No pathologically enla rged thoracic lymph nodes are identified. The heart size is normal. Abdomen/pelvis/proximal thighs: Physiologic FDG activity is present in the bowel and urinary tract. N o abnormal FDG uptake is identified. The liver, spleen, pancreas, gallbladder, and adrenal glands are normal. There is a 3.3 cm cyst of the right kidney. No pathologically enlarged abdominal or pelvic l ymph nodes are identified. There is no free intraperitoneal gas or evidence of bowel obstruction. Enrico cified atherosclerosis is noted. Musculoskeletal: No abnormal FDG uptake is identified. A left hip arthroplasty is noted. IMPRESSION: 1. Nodules in the left upper and left lower lobes, consistent with metastatic disease. Reviewed, dictated and finalized at location B. LAY SPECIALIST IMPRESSION: 1. Nodules in the left upper and left lower lobes, consistent with metastatic d isease.
[2022-03-16 08:44] LABS: Glucose Point of Care 165 mg/dl (65-105)
== END 2022-03-16 08:16 | disposition home or self-care (01) ==
PROVIDERS: PCP Emergency Medicine; Visit Provider Internal Medicine Hematology & Oncology
DX: R91.8 Other nonspecific abnormal finding of lung field (principal); C50.919 Malignant neoplasm of unspecified site of unspecified female breast
CPT/HCPCS: 78815; A9552

== ENCOUNTER 2022-05-25 10:16 | Outpatient (CLI) | payer MEDICARE, SELFPAY ==
[2022-05-25 10:44] LABS: Basophils Absolute Auto 0.1 K/mm3 (0.0-0.1); Basophils Percent Auto 2.1 % (0.2-1.2); Eosinophils Absolute Auto 0.1 K/mm3 (0-0.3); Eosinophils Percent Auto 1.3 % (0-4.4); Hematocrit 36.6 % (37.0-47.0); Immature Granulocyte Absolute 0.03 K/mm3 (0.00-0.031); Immature Granulocyte Percent A 0.8 % (0-0.5); Lymphocytes Absolute Auto 1.06 K/mm3 (0.9-3.2); Mean Corpuscular HGB Conc 32.8 g/dl (32-36); Mean Corpuscular Hemoglobin 33.9 pg (26-34); Mean Corpuscular Volume 103.4 fl (80-100); Mean Platelet Volume 8.3 fl (7.4-10.4); Monocytes Absolute Auto 0.2 K/mm3 (0.1-0.6); Monocytes Percent Auto 4.2 % (2.6-8.5); Neutrophils Absolute Auto 2.4 K/mm3 (1.3-6.7); Neutrophils Percent Auto 63.6 % (45.5-73.1); Platelet Count Result 209 k/mm3 (150-375); Red Blood Count 3.54 M/mm3 (4.2-5.4); Red Cell Distribution Width 14.2 % (11.5-14.5); White Blood Count 3.8 K/mm3 (4.5-10.0)
[2022-05-25 10:45] LABS: Atypical Lymphocytes Present; Platelet Estimate Adequate (Adequate); Schistocytes None Seen (NORMAL)
[2022-05-25 10:45] LABS: Blood Urea Nitrogen 27 mg/dL (8-26); Carbon Dioxide 28 mmol/L (22-30); Chloride 102 mmol/L (98-109); Estimated Glomerular Filt Rate 36; Glucose 133 mg/dL (70-105); Ionized Calcium (POC) 1.22 mmol/L (1.11-1.31); Sodium 139 mmol/L (138-146)
[2022-05-29 15:10] LABS: CA 15-3 39 U/mL (<32)
== END 2022-05-25 10:17 | disposition home or self-care (01) ==
LOC: ANHLAB 10:20
PROVIDERS: PCP Emergency Medicine; Visit Provider Internal Medicine Hematology & Oncology
DX: C50.912 Malignant neoplasm of unspecified site of left female breast (principal); Z17.0 Estrogen receptor positive status [ER+]
CPT/HCPCS: 36415; 80047; 85025; 86300

== ENCOUNTER 2022-06-22 08:36 | Outpatient (CLI) | payer MEDICARE, SELFPAY ==
--- NOTE | ~2022-06-22 | CT_ITS ---
Clinical Indication: Breast cancer CT Scan of the Chest with Contrast: Technique: Contiguous sections were acquired throughout the chest after intravenous administration of 75 cc of Omnipaque 350. Dose reduction technique was used on this scan by utilizing automated exposu re control and iterative reconstruction technique. The dose-length product (DLP) was 811.14 mGy-cm. COMPARISON: 02/13/2022 Findings: There is no evidence of any significant mediastinal, hilar or axillary lymphadenopathy. Coronary lory ry calcifications are present. No aortic aneurysm. There is no evidence of pleural or pericardial effusion. 2 cm spiculated left upper lobe pulmonary nodule noted (axial image 40). Previously noted left basila r pulmonary nodule is essentially completely resolved. Right lung is clear. Images through the upper abdomen reveal no abnormalities. Impression: 2 cm spiculated left upper lobe pulmonary nodule, probably mildly increased in size from prior exam. This is compatible with neoplasm, either bronchogenic carcinoma versus metastatic lesion. Previously noted left basilar pulmonary nodules essentially completely resolved. Reviewed, dictated and finalized at location . Impression: 2 cm spiculated left upper lobe pulmonary nodule, probably mildly increased in size from prior exam. This is compatible with neoplasm, either bronchogenic car cinoma versus metastatic lesion. Previously noted left basilar pulmonary nodules essentially completely resolved .
== END 2022-06-22 08:37 | disposition home or self-care (01) ==
PROVIDERS: PCP Emergency Medicine; Visit Provider Internal Medicine Hematology & Oncology
DX: C50.912 Malignant neoplasm of unspecified site of left female breast (principal); Z17.0 Estrogen receptor positive status [ER+]; R91.8 Other nonspecific abnormal finding of lung field
CPT/HCPCS: 71260; Q9967

== ENCOUNTER 2022-06-23 13:05 | Outpatient (CLI) | payer MEDICARE, SELFPAY ==
[2022-06-23 13:26] LABS: Basophils Absolute Auto 0.1 K/mm3 (0.0-0.1); Basophils Percent Auto 1.8 % (0.2-1.2); Eosinophils Percent Auto 0.8 % (0-4.4); Hemoglobin 11.6 g/dL (12.0-15.0); Immature Granulocyte Absolute 0.02 K/mm3 (0.00-0.031); Immature Granulocyte Percent A 0.5 % (0-0.5); Lymphocytes Absolute Auto 0.96 K/mm3 (0.9-3.2); Lymphocytes Percent Auto 24.6 % (18.3-44.2); Mean Corpuscular HGB Conc 33.1 g/dl (32-36); Mean Corpuscular Hemoglobin 33.6 pg (26-34); Mean Corpuscular Volume 101.4 fl (80-100); Mean Platelet Volume 8.7 fl (7.4-10.4); Monocytes Absolute Auto 0.2 K/mm3 (0.1-0.6); Monocytes Percent Auto 4.9 % (2.6-8.5); Neutrophils Absolute Auto 2.6 K/mm3 (1.3-6.7); Neutrophils Percent Auto 67.4 % (45.5-73.1); Platelet Count Result 175 k/mm3 (150-375); Red Blood Count 3.45 M/mm3 (4.2-5.4); Red Cell Distribution Width 14.1 % (11.5-14.5); White Blood Count 3.9 K/mm3 (4.5-10.0)
[2022-06-23 14:40] LABS: Alanine Aminotransferase 16 U/L (6-35); Albumin Level 4.4 g/dL (3.5-5.1); Alkaline Phosphatase 69 U/L (38-126); Anion Gap 10 mmol/L (8-16); Aspartate Amino Transferase 17 U/L (14-36); Bilirubin,Total 0.6 mg/dL (0.2-1.3); Blood Urea Nitrogen 23 mg/dL (7-17); Calcium 9.4 mg/dL (8.4-10.2); Carbon Dioxide 26 mmol/L (22-30); Chloride 103 mmol/L (98-107); Estimated Glomerular Filt Rate 43; Glucose 120 mg/dL (65-110); Potassium 4.1 mmol/L (3.4-5.0); Sodium 139 mmol/L (137-145)
[2022-06-27 12:20] LABS: CA 15-3 35 U/mL (<32)
== END 2022-06-23 13:06 | disposition home or self-care (01) ==
LOC: ANHLAB 13:08
PROVIDERS: PCP Emergency Medicine; Visit Provider Internal Medicine Hematology & Oncology
DX: C50.912 Malignant neoplasm of unspecified site of left female breast (principal); Z17.0 Estrogen receptor positive status [ER+]
CPT/HCPCS: 36415; 80053; 85025; 86300

== ENCOUNTER 2022-07-28 10:39 | Outpatient (CLI) | payer MEDICARE, SELFPAY ==
[2022-07-28 10:56] LABS: Basophils Absolute Auto 0.1 K/mm3 (0.0-0.1); Basophils Percent Auto 2.1 % (0.2-1.2); Eosinophils Percent Auto 0.3 % (0-4.4); Hematocrit 36.6 % (37.0-47.0); Hemoglobin 11.9 g/dL (12.0-15.0); Immature Granulocyte Absolute 0.01 K/mm3 (0.00-0.031); Immature Granulocyte Percent A 0.3 % (0-0.5); Lymphocytes Absolute Auto 0.91 K/mm3 (0.9-3.2); Mean Corpuscular HGB Conc 32.5 g/dl (32-36); Mean Corpuscular Hemoglobin 33.6 pg (26-34); Mean Corpuscular Volume 103.4 fl (80-100); Mean Platelet Volume 8.3 fl (7.4-10.4); Monocytes Absolute Auto 0.2 K/mm3 (0.1-0.6); Monocytes Percent Auto 5.3 % (2.6-8.5); Neutrophils Absolute Auto 2.2 K/mm3 (1.3-6.7); Platelet Count Result 139 k/mm3 (150-375); Red Blood Count 3.54 M/mm3 (4.2-5.4); Red Cell Distribution Width 14.8 % (11.5-14.5); White Blood Count 3.4 K/mm3 (4.5-10.0)
[2022-07-28 12:37] LABS: Alanine Aminotransferase 20 U/L (6-35); Albumin Level 4.6 g/dL (3.5-5.1); Alkaline Phosphatase 64 U/L (38-126); Anion Gap 12 mmol/L (8-16); Aspartate Amino Transferase 20 U/L (14-36); Bilirubin,Total 0.7 mg/dL (0.2-1.3); Blood Urea Nitrogen 21 mg/dL (7-17); Calcium 9.6 mg/dL (8.4-10.2); Carbon Dioxide 24 mmol/L (22-30); Chloride 102 mmol/L (98-107); Estimated Glomerular Filt Rate 53; Glucose 142 mg/dL (65-110); Sodium 138 mmol/L (137-145)
[2022-08-02 04:22] LABS: CA 15-3 32 U/mL (<32)
== END 2022-07-28 10:40 | disposition home or self-care (01) ==
LOC: ANHLAB 10:41
PROVIDERS: PCP Emergency Medicine; Visit Provider Internal Medicine Hematology & Oncology
DX: C50.912 Malignant neoplasm of unspecified site of left female breast (principal); Z17.0 Estrogen receptor positive status [ER+]
CPT/HCPCS: 36415; 80053; 85025; 86300

== ENCOUNTER 2022-08-31 06:34 | Outpatient (CLI) | payer MEDICARE, SELFPAY ==
--- NOTE | ~2022-08-31 | CT_ITS ---
Clinical Indication: Left breast cancer CT Scan of the Chest with Contrast: Technique: Contiguous sections were acquired throughout the chest after intravenous administration of 75 cc of Omnipaque 350. Dose reduction technique was used on this scan by utilizing automated exposu re control and iterative reconstruction technique. The dose-length product (DLP) was 672.70 mGy-cm. COMPARISON: 06/22/2022 and 10/05/2021 Findings: There is no evidence of any significant mediastinal, hilar or axillary lymphadenopathy. There are ath erosclerotic calcifications of the aorta and coronary arteries. No large central pulmonary embolus se en. There is no evidence of aortic dissection or aneurysm. There is no evidence of pleural or pericardial effusion. 2.0 x 1.9 cm irregular/spiculated left upper lobe pulmonary nodule is essentially stable from most re cent prior exam. There is new patchy, predominantly groundglass opacity at the very extreme left lung base, nonspecific. Right lung remains clear. Images through the upper abdomen reveal stable left hepatic lobe cyst. Stable probable post treatment changes in the left breast. Impression: 2.0 x 1.9 cm irregular/spiculated left upper lobe pulmonary nodule is essentially unchanged from most recent prior exam. Prior biopsy results demonstrated metastatic adenocarcinoma. New patchy, predominantly groundglass opacities at the left lung base, suggestive of infectious/infla mmatory etiology. Continued follow-up advised to assess for resolution or progression. Stable probable post treatment changes in the left breast. Reviewed, dictated and finalized at location . Impression: 2.0 x 1.9 cm irregular/spiculated left upper lobe pulmonary nodule is essential ly unchanged from most recent prior exam. Prior biopsy results demonstrated met astatic adenocarcinoma. New patchy, predominantly groundglass opacities at the left lung base, suggesti ve of infectious/inflammatory etiology. Continued follow-up advised to assess f or resolution or progression. Stable probable post treatment changes in the left breast.
[2022-08-31 07:27] LABS: Estimated Glomerular Filt Rate 60
== END 2022-08-31 06:35 | disposition home or self-care (01) ==
PROVIDERS: PCP Emergency Medicine; Visit Provider Internal Medicine Hematology & Oncology
DX: C50.912 Malignant neoplasm of unspecified site of left female breast (principal); R91.1 Solitary pulmonary nodule; R91.8 Other nonspecific abnormal finding of lung field; Z17.0 Estrogen receptor positive status [ER+]
CPT/HCPCS: 71260; Q9967

== ENCOUNTER 2022-09-15 13:10 | Outpatient (CLI) | payer MEDICARE, SELFPAY ==
[2022-09-15 13:23] LABS: Basophils Absolute Auto 0.1 K/mm3 (0.0-0.1); Basophils Percent Auto 1.6 % (0.2-1.2); Eosinophils Percent Auto 0.2 % (0-4.4); Hematocrit 35.4 % (37.0-47.0); Hemoglobin 11.6 g/dL (12.0-15.0); Immature Granulocyte Absolute 0.01 K/mm3 (0.00-0.031); Immature Granulocyte Percent A 0.2 % (0-0.5); Lymphocytes Absolute Auto 1.17 K/mm3 (0.9-3.2); Lymphocytes Percent Auto 27.4 % (18.3-44.2); Mean Corpuscular HGB Conc 32.8 g/dl (32-36); Mean Corpuscular Hemoglobin 33.9 pg (26-34); Mean Corpuscular Volume 103.5 fl (80-100); Mean Platelet Volume 8.7 fl (7.4-10.4); Monocytes Absolute Auto 0.3 K/mm3 (0.1-0.6); Monocytes Percent Auto 5.9 % (2.6-8.5); Neutrophils Absolute Auto 2.8 K/mm3 (1.3-6.7); Neutrophils Percent Auto 64.7 % (45.5-73.1); Platelet Count Result 187 k/mm3 (150-375); Red Blood Count 3.42 M/mm3 (4.2-5.4); Red Cell Distribution Width 14.9 % (11.5-14.5); White Blood Count 4.3 K/mm3 (4.5-10.0)
[2022-09-15 13:34] LABS: Anisocytosis 1+ (NORMAL); Atypical Lymphocytes Present; Ovalocytes 1+ (NORMAL); Platelet Estimate Adequate (Adequate); Poikilocytosis 1+ (NORMAL); Schistocytes None Seen (NORMAL)
[2022-09-15 14:29] LABS: Alanine Aminotransferase 19 U/L (6-35); Albumin Level 4.4 g/dL (3.5-5.1); Alkaline Phosphatase 68 U/L (38-126); Anion Gap 11 mmol/L (8-16); Aspartate Amino Transferase 19 U/L (14-36); Bilirubin,Total 0.4 mg/dL (0.2-1.3); Blood Urea Nitrogen 26 mg/dL (7-17); Calcium 9.3 mg/dL (8.4-10.2); Carbon Dioxide 22 mmol/L (22-30); Chloride 104 mmol/L (98-107); Estimated Glomerular Filt Rate 43; Glucose 107 mg/dL (65-110); Potassium 4.3 mmol/L (3.4-5.0); Sodium 137 mmol/L (137-145)
[2022-09-22 06:06] LABS: CA 15-3 34 U/mL (<32)
== END 2022-09-15 13:11 | disposition home or self-care (01) ==
LOC: ANHLAB 13:12
PROVIDERS: PCP Emergency Medicine; Visit Provider Internal Medicine Hematology & Oncology
DX: C50.912 Malignant neoplasm of unspecified site of left female breast (principal); Z17.0 Estrogen receptor positive status [ER+]
CPT/HCPCS: 36415; 80053; 85025; 86300

== ENCOUNTER 2022-11-24 11:16 | Outpatient (CLI) | payer MEDICARE, SELFPAY ==
[2022-11-24 11:29] LABS: Basophils Absolute Auto 0.1 K/mm3 (0.0-0.1); Basophils Percent Auto 1.7 % (0.2-1.2); Eosinophils Percent Auto 0.5 % (0-4.4); Hematocrit 36.2 % (37.0-47.0); Hemoglobin 12.2 g/dL (12.0-15.0); Immature Granulocyte Absolute 0.03 K/mm3 (0.00-0.031); Immature Granulocyte Percent A 0.7 % (0-0.5); Lymphocytes Absolute Auto 1.21 K/mm3 (0.9-3.2); Lymphocytes Percent Auto 28.6 % (18.3-44.2); Mean Corpuscular HGB Conc 33.7 g/dl (32-36); Mean Corpuscular Hemoglobin 34.7 pg (26-34); Mean Corpuscular Volume 102.8 fl (80-100); Mean Platelet Volume 8.7 fl (7.4-10.4); Monocytes Absolute Auto 0.6 K/mm3 (0.1-0.6); Monocytes Percent Auto 13.2 % (2.6-8.5); Neutrophils Absolute Auto 2.3 K/mm3 (1.3-6.7); Neutrophils Percent Auto 55.3 % (45.5-73.1); Platelet Count Result 164 k/mm3 (150-375); Red Blood Count 3.52 M/mm3 (4.2-5.4); Red Cell Distribution Width 15.3 % (11.5-14.5); White Blood Count 4.2 K/mm3 (4.5-10.0)
[2022-11-24 16:42] LABS: Alanine Aminotransferase 17 U/L (6-35); Albumin Level 4.4 g/dL (3.5-5.1); Alkaline Phosphatase 64 U/L (38-126); Anion Gap 13 mmol/L (8-16); Aspartate Amino Transferase 20 U/L (14-36); Bilirubin,Total 0.4 mg/dL (0.2-1.3); Blood Urea Nitrogen 26 mg/dL (7-17); Calcium 9.6 mg/dL (8.4-10.2); Carbon Dioxide 25 mmol/L (22-30); Chloride 100 mmol/L (98-107); Estimated Glomerular Filt Rate 43; Glucose 112 mg/dL (65-110); Potassium 4.4 mmol/L (3.4-5.0); Sodium 138 mmol/L (137-145)
[2022-11-28 14:16] LABS: CA 15-3 35 U/mL (<32)
== END 2022-11-24 11:17 | disposition home or self-care (01) ==
PROVIDERS: PCP Emergency Medicine; Visit Provider Internal Medicine Hematology & Oncology
DX: C50.912 Malignant neoplasm of unspecified site of left female breast (principal); Z17.0 Estrogen receptor positive status [ER+]
CPT/HCPCS: 36415; 80053; 85025; 86300

== ENCOUNTER 2023-01-22 08:47 | Outpatient (CLI) | payer MEDICARE, SELFPAY ==
--- NOTE | ~2023-01-22 | CT_ITS ---
EXAMINATION: CT chest abdomen pelvis w con DATE: 01/22/2023 09:32 INDICATION: Malignant neoplasm of left breast. TECHNIQUE: Computed tomography (CT) of the chest, abdomen, and pelvis was performed with 100 mL Omnip aque 350 intravenous contrast. Automated exposure control and iterative reconstruction technique were employed. The dose-length product was 2034.11 mGy-cm. COMPARISON: Chest CT 08/31/2022, PET CT 03/16/2022 FINDINGS: CHEST CT: The lungs demonstrate mild atelectasis. There is an 8 mm nodule in right lower lobe. There are airspa ce opacities with volume loss and architectural distortion left upper lobe and left lower lobe, consi stent with radiation pneumonitis. Calcified left lung nodules and calcified left hilar lymph nodes ar e consistent with old granulomatous disease. There is a small left pleural effusion. The heart size i s normal. There are coronary artery calcifications. No pericardial effusion. There is severe cervical spondylosis and moderate thoracic spondylosis. ABDOMEN/PELVIS CT: There is a 17 mm cyst in the liver. The gallbladder, spleen, pancreas, and adrenal glands are normal. There is cortical thinning of the kidneys. There is a 4.3 cm cyst in right kidney. There are no dila gail loops of bowel. There is diverticulosis of the colon without evidence of diverticulitis. There is calcified atherosclerosis of the aorta and many of the other arteries. There are no pathologically e nlarged lymph nodes. There is no free intraperitoneal fluid. There is a total left hip arthroplasty. There is lumbar levoscoliosis and severe spondylosis. IMPRESSION: 1. Worsened 8 mm nodule in right lung lower lobe, consistent with metastatic disease. 2. Radiation pneumonitis involving left upper lobe and left lower lobe. 3. Small left pleural effusion. Reviewed, dictated and finalized at location E. IMPRESSION: 1. Worsened 8 mm nodule in right lung lower lobe, consistent with metastatic di sease. 2. Radiation pneumonitis involving left upper lobe and left lower lobe. 3. Small left pleural effusion.
[2023-01-22 09:17] LABS: Estimated Glomerular Filt Rate 53
== END 2023-01-22 08:48 | disposition home or self-care (01) ==
PROVIDERS: PCP Emergency Medicine; Visit Provider Internal Medicine
DX: C50.912 Malignant neoplasm of unspecified site of left female breast (principal); Z17.0 Estrogen receptor positive status [ER+]; J90 Pleural effusion, not elsewhere classified
CPT/HCPCS: 71260; 74177; Q9967

== ENCOUNTER 2023-01-24 13:29 | Outpatient (CLI) | payer MEDICARE, SELFPAY ==
[2023-01-24 13:42] LABS: Basophils Absolute Auto 0.2 K/mm3 (0.0-0.1); Basophils Percent Auto 2.9 % (0.2-1.2); Eosinophils Absolute Auto 0.1 K/mm3 (0-0.3); Eosinophils Percent Auto 1.2 % (0-4.4); Hematocrit 39.1 % (37.0-47.0); Hemoglobin 12.7 g/dL (12.0-15.0); Immature Granulocyte Absolute 0.02 K/mm3 (0.00-0.031); Immature Granulocyte Percent A 0.4 % (0-0.5); Lymphocytes Absolute Auto 1.51 K/mm3 (0.9-3.2); Lymphocytes Percent Auto 29.4 % (18.3-44.2); Mean Corpuscular HGB Conc 32.5 g/dl (32-36); Mean Corpuscular Hemoglobin 34.8 pg (26-34); Mean Corpuscular Volume 107.1 fl (80-100); Mean Platelet Volume 8.7 fl (7.4-10.4); Monocytes Absolute Auto 0.3 K/mm3 (0.1-0.6); Monocytes Percent Auto 5.1 % (2.6-8.5); Neutrophils Absolute Auto 3.1 K/mm3 (1.3-6.7); Platelet Count Result 306 k/mm3 (150-375); Red Blood Count 3.65 M/mm3 (4.2-5.4); White Blood Count 5.1 K/mm3 (4.5-10.0)
[2023-01-24 17:03] LABS: Alanine Aminotransferase 17 U/L (6-35); Albumin Level 4.9 g/dL (3.5-5.1); Alkaline Phosphatase 75 U/L (38-126); Anion Gap 13 mmol/L (8-16); Aspartate Amino Transferase 20 U/L (14-36); Bilirubin,Total 0.6 mg/dL (0.2-1.3); Blood Urea Nitrogen 21 mg/dL (7-17); Calcium 10.1 mg/dL (8.4-10.2); Carbon Dioxide 23 mmol/L (22-30); Chloride 100 mmol/L (98-107); Estimated Glomerular Filt Rate 53; Glucose 136 mg/dL (65-110); Potassium 4.2 mmol/L (3.4-5.0); Sodium 136 mmol/L (137-145)
[2023-01-27 06:02] LABS: CA 15-3 47 U/mL (<32)
== END 2023-01-24 13:30 | disposition home or self-care (01) ==
LOC: ANHLAB 13:31
PROVIDERS: PCP Emergency Medicine; Visit Provider Internal Medicine Hematology & Oncology
DX: C50.912 Malignant neoplasm of unspecified site of left female breast (principal); Z17.0 Estrogen receptor positive status [ER+]
CPT/HCPCS: 36415; 80053; 85025; 86300

== ENCOUNTER 2023-04-23 10:36 | Outpatient (CLI) | payer MEDICARE, SELFPAY ==
[2023-04-23 10:54] LABS: Basophils Absolute Auto 0.1 K/mm3 (0.0-0.1); Basophils Percent Auto 1.8 % (0.2-1.2); Eosinophils Absolute Auto 0.1 K/mm3 (0-0.3); Eosinophils Percent Auto 1.8 % (0-4.4); Hematocrit 36.5 % (37.0-47.0); Hemoglobin 11.6 g/dL (12.0-15.0); Immature Granulocyte Absolute 0.02 K/mm3 (0.00-0.031); Immature Granulocyte Percent A 0.6 % (0-0.5); Lymphocytes Absolute Auto 0.89 K/mm3 (0.9-3.2); Lymphocytes Percent Auto 26.3 % (18.3-44.2); Mean Corpuscular HGB Conc 31.8 g/dl (32-36); Mean Corpuscular Hemoglobin 34.6 pg (26-34); Mean Platelet Volume 9.2 fl (7.4-10.4); Monocytes Absolute Auto 0.2 K/mm3 (0.1-0.6); Monocytes Percent Auto 5.9 % (2.6-8.5); Neutrophils Absolute Auto 2.2 K/mm3 (1.3-6.7); Neutrophils Percent Auto 63.6 % (45.5-73.1); Platelet Count Result 206 k/mm3 (150-375); Red Blood Count 3.35 M/mm3 (4.2-5.4); Red Cell Distribution Width 14.6 % (11.5-14.5); White Blood Count 3.4 K/mm3 (4.5-10.0)
== END 2023-04-23 10:37 | disposition home or self-care (01) ==
LOC: ANHLAB 10:38
PROVIDERS: PCP Emergency Medicine; Visit Provider Internal Medicine Hematology & Oncology
DX: C50.912 Malignant neoplasm of unspecified site of left female breast (principal); Z17.0 Estrogen receptor positive status [ER+]
CPT/HCPCS: 36415; 85025

== ENCOUNTER 2023-04-23 16:21 | Outpatient (CLI) | payer MEDICARE, SELFPAY ==
--- NOTE | ~2023-04-23 | CT_ITS ---
Clinical Indication: Breast cancer CT Scan of the Chest with Contrast: Technique: Contiguous sections were acquired throughout the chest after intravenous administration of 75 cc of Omnipaque 350. Dose reduction technique was used on this scan by utilizing automated exposu re control and iterative reconstruction technique. The dose-length product (DLP) was 789.59 mGy-cm. COMPARISON: 01/22/2023 Findings: There is no evidence of any significant mediastinal, hilar or axillary lymphadenopathy. There is no f illing defect in the pulmonary arterial tree to suggest pulmonary embolus. There is no evidence of ao rtic dissection or aneurysm. Postoperative change noted medial left breast. No pericardial effusion. Small left pleural effusion present, similar to prior exam. No right pleural effusion. Patchy consolidation left lower lobe is similar to prior exam. There is additional focal consolidatio n at the left lung base, similar to prior exam. Right lung essentially clear. Images through the upper abdomen reveal stable left hepatic lobe cyst. Impression: Previously noted right lower lobe pulmonary nodule is essentially resolved. Patchy consolidation left upper lobe and right lung base with distortion, most compatible with chroni c post radiation change. Small left pleural effusion, similar to prior exam. Reviewed, dictated and finalized at location . TH LEAD Impression: Previously noted right lower lobe pulmonary nodule is essentially resolved. Patchy consolidation left upper lobe and right lung base with distortion, most compatible with chronic post radiation change. Small left pleural effusion, similar to prior exam.
[2023-04-24 07:53] LABS: Estimated Glomerular Filt Rate 39
== END 2023-04-23 16:22 | disposition home or self-care (01) ==
LOC: ANHIMG 16:25
PROVIDERS: PCP Emergency Medicine; Visit Provider Internal Medicine Hematology & Oncology
DX: C50.912 Malignant neoplasm of unspecified site of left female breast (principal); Z17.0 Estrogen receptor positive status [ER+]; R91.1 Solitary pulmonary nodule; J90 Pleural effusion, not elsewhere classified
CPT/HCPCS: 36415; 71260; 85025; Q9967

== ENCOUNTER 2023-05-31 07:20 | Outpatient (CLI) | payer MEDICARE, SELFPAY ==
[2023-05-31 08:07] LABS: Cholesterol 123 mg/dL (0-200); HDL Direct 68 mg/dL; Triglycerides 132 mg/dL (<150)
[2023-05-31 08:19] LABS: LDL Cholesterol Direct 42 mg/dL
== END 2023-05-31 07:21 | disposition home or self-care (01) ==
LOC: ANHLAB 07:22
PROVIDERS: PCP Emergency Medicine; Visit Provider Internal Medicine Cardiovascular Disease
DX: I10 Essential (primary) hypertension (principal)
CPT/HCPCS: 36415; 80061

== ENCOUNTER 2023-06-11 08:53 | Outpatient (CLI) | payer MEDICARE, SELFPAY ==
[2023-06-11 09:33] LABS: Basophils Absolute Auto 0.1 K/mm3 (0.0-0.1); Basophils Percent Auto 2.4 % (0.2-1.2); Eosinophils Percent Auto 1.2 % (0-4.4); Hematocrit 35.2 % (37.0-47.0); Hemoglobin 11.2 g/dL (12.0-15.0); Immature Granulocyte Absolute 0.02 K/mm3 (0.00-0.031); Immature Granulocyte Percent A 0.6 % (0-0.5); Lymphocytes Absolute Auto 0.79 K/mm3 (0.9-3.2); Lymphocytes Percent Auto 23.2 % (18.3-44.2); Mean Corpuscular HGB Conc 31.8 g/dl (32-36); Mean Corpuscular Hemoglobin 35.1 pg (26-34); Mean Corpuscular Volume 110.3 fl (80-100); Mean Platelet Volume 9.1 fl (7.4-10.4); Monocytes Absolute Auto 0.3 K/mm3 (0.1-0.6); Monocytes Percent Auto 9.1 % (2.6-8.5); Neutrophils Absolute Auto 2.2 K/mm3 (1.3-6.7); Neutrophils Percent Auto 63.5 % (45.5-73.1); Platelet Count Result 178 k/mm3 (150-375); Red Blood Count 3.19 M/mm3 (4.2-5.4); Red Cell Distribution Width 15.1 % (11.5-14.5); White Blood Count 3.4 K/mm3 (4.5-10.0)
[2023-06-11 09:41] LABS: Anion Gap 4 mmol/L (8-16); Blood Urea Nitrogen 19 mg/dL (7-17); Calcium 9.6 mg/dL (8.4-10.2); Carbon Dioxide 31 mmol/L (22-30); Chloride 102 mmol/L (98-107); Estimated Glomerular Filt Rate 43; Glucose 129 mg/dL (65-110); Potassium 4.1 mmol/L (3.4-5.0); Sodium 137 mmol/L (137-145)
[2023-06-11 10:57] LABS: Ovalocytes 1+; Platelet Estimate Adequate (Adequate); Poikilocytosis 1+
[2023-06-11 10:58] LABS: Schistocytes Rare
[2023-06-13 14:06] LABS: CA 15-3 39 U/mL (<32)
== END 2023-06-11 08:54 | disposition home or self-care (01) ==
PROVIDERS: PCP Emergency Medicine; Visit Provider Internal Medicine Hematology & Oncology
DX: C50.912 Malignant neoplasm of unspecified site of left female breast (principal); Z17.0 Estrogen receptor positive status [ER+]
CPT/HCPCS: 36415; 80048; 85025; 86300

== ENCOUNTER 2023-07-23 08:09 | Outpatient (CLI) | payer MEDICARE, SELFPAY ==
[2023-07-23 08:46] LABS: Basophils Absolute Auto 0.1 K/mm3 (0.0-0.1); Basophils Percent Auto 2.5 % (0.2-1.2); Eosinophils Percent Auto 1.2 % (0-4.4); Hematocrit 35.9 % (37.0-47.0); Hemoglobin 11.4 g/dL (12.0-15.0); Immature Granulocyte Absolute 0.02 K/mm3 (0.00-0.031); Immature Granulocyte Percent A 0.6 % (0-0.5); Lymphocytes Absolute Auto 0.73 K/mm3 (0.9-3.2); Lymphocytes Percent Auto 22.5 % (18.3-44.2); Mean Corpuscular HGB Conc 31.8 g/dl (32-36); Mean Corpuscular Hemoglobin 35.3 pg (26-34); Mean Corpuscular Volume 111.1 fl (80-100); Mean Platelet Volume 9.3 fl (7.4-10.4); Monocytes Absolute Auto 0.2 K/mm3 (0.1-0.6); Monocytes Percent Auto 4.6 % (2.6-8.5); Neutrophils Absolute Auto 2.2 K/mm3 (1.3-6.7); Neutrophils Percent Auto 68.6 % (45.5-73.1); Platelet Count Result 156 k/mm3 (150-375); Red Blood Count 3.23 M/mm3 (4.2-5.4); Red Cell Distribution Width 14.8 % (11.5-14.5); White Blood Count 3.3 K/mm3 (4.5-10.0)
[2023-07-23 08:54] LABS: Anion Gap 9 mmol/L (4-12); Blood Urea Nitrogen 26 mg/dL (7-17); Carbon Dioxide 25 mmol/L (22-30); Chloride 105 mmol/L (98-107); Estimated Glomerular Filt Rate 43; Glucose 159 mg/dL (65-110); Sodium 139 mmol/L (137-145)
[2023-07-24 13:19] LABS: CA 15-3 38 U/mL (<32)
== END 2023-07-23 08:10 | disposition home or self-care (01) ==
LOC: ANHLAB 08:11
PROVIDERS: PCP Emergency Medicine; Visit Provider Internal Medicine Hematology & Oncology
DX: C50.912 Malignant neoplasm of unspecified site of left female breast (principal); Z17.0 Estrogen receptor positive status [ER+]
CPT/HCPCS: 36415; 80048; 85025; 86300

== ENCOUNTER 2023-09-10 07:31 | Outpatient (CLI) | payer MEDICARE, SELFPAY ==
--- NOTE | ~2023-09-10 | CT_ITS ---
EXAMINATION: CT chest abdomen pelvis w con DATE: 09/10/2023 08:05 INDICATION: Malignant neoplasm of left breast. TECHNIQUE: Computed tomography (CT) of the chest, abdomen, and pelvis was performed with 100 mL Omnip aque 350 intravenous contrast. Automated exposure control and iterative reconstruction technique were employed. The dose-length product was 1856.82 mGy-cm. COMPARISON: Chest CT 04/23/2023, CT chest, abdomen, and pelvis 01/22/2023 FINDINGS: CHEST CT: The lungs demonstrate mild atelectasis and mild chronic lung disease. Again seen is radiation pneumon itis in left upper lobe and left lower lobe. There is mild bronchiectasis in right lower lobe. There is a small left pleural effusion. The heart size is normal. There are coronary artery calcifications. No pericardial effusion. There are surgical changes in left breast. There is skin thickening of left breast, likely changes of radiation therapy. There is nipple retraction of left breast. There is mod erate thoracic spondylosis. ABDOMEN/PELVIS CT: There are cysts in the liver measuring up to 14 mm. The gallbladder, spleen, pancreas, and adrenal gl ands are normal. There is cortical thinning of the kidneys. There are cysts in right kidney measuring up to 4.5 cm. There is diverticulosis of the colon without evidence of diverticulitis. The appendix is normal. There is a small sliding hiatal hernia. There are no pathologically enlarged lymph nodes. There is no free intraperitoneal fluid. There is a total left hip arthroplasty. There is lumbar levos coliosis and severe spondylosis. IMPRESSION: 1. No specific evidence of metastatic disease. 2. Stable small left pleural effusion. Reviewed, dictated and finalized at location E.
[2023-09-10 07:55] LABS: Estimated Glomerular Filt Rate 43
[2023-09-10 12:58] LABS: Basophils Absolute Auto 0.1 K/mm3 (0.0-0.1); Basophils Percent Auto 2.4 % (0.2-1.2); Eosinophils Percent Auto 0.9 % (0-4.4); Hematocrit 35.5 % (37.0-47.0); Hemoglobin 11.6 g/dL (12.0-15.0); Immature Granulocyte Absolute 0.01 K/mm3 (0.00-0.031); Immature Granulocyte Percent A 0.3 % (0-0.5); Lymphocytes Absolute Auto 0.93 K/mm3 (0.9-3.2); Lymphocytes Percent Auto 28.2 % (18.3-44.2); Mean Corpuscular HGB Conc 32.7 g/dl (32-36); Mean Corpuscular Hemoglobin 35.4 pg (26-34); Mean Corpuscular Volume 108.2 fl (80-100); Mean Platelet Volume 8.7 fl (7.4-10.4); Monocytes Absolute Auto 0.3 K/mm3 (0.1-0.6); Monocytes Percent Auto 7.6 % (2.6-8.5); Neutrophils Percent Auto 60.6 % (45.5-73.1); Platelet Count Result 202 k/mm3 (150-375); Red Blood Count 3.28 M/mm3 (4.2-5.4); Red Cell Distribution Width 14.4 % (11.5-14.5); White Blood Count 3.3 K/mm3 (4.5-10.0)
[2023-09-10 13:15] LABS: Alanine Aminotransferase 12 U/L (6-35); Albumin Level 4.5 g/dL (3.5-5.1); Alkaline Phosphatase 65 U/L (38-126); Anion Gap 11 mmol/L (4-12); Aspartate Amino Transferase 18 U/L (14-36); Bilirubin,Total 0.8 mg/dL (0.2-1.3); Blood Urea Nitrogen 20 mg/dL (7-17); Calcium 9.6 mg/dL (8.4-10.2); Carbon Dioxide 26 mmol/L (22-30); Chloride 101 mmol/L (98-107); Estimated Glomerular Filt Rate 48; Glucose 105 mg/dL (65-110); Potassium 4.1 mmol/L (3.4-5.0); Sodium 138 mmol/L (137-145)
[2023-09-10 14:25] LABS: Platelet Estimate Adequate (Adequate)
[2023-09-10 14:26] LABS: Anisocytosis 1+; Macrocytosis 1+ (NORMAL); Schistocytes None Seen
[2023-09-12 04:23] LABS: CA 15-3 40 U/mL (<32)
== END 2023-09-10 07:32 | disposition home or self-care (01) ==
PROVIDERS: PCP Emergency Medicine; Visit Provider Internal Medicine Hematology & Oncology
DX: C50.912 Malignant neoplasm of unspecified site of left female breast (principal); Z17.0 Estrogen receptor positive status [ER+]; J90 Pleural effusion, not elsewhere classified
CPT/HCPCS: 36415; 71260; 74177; 80053; 85025; 86300; Q9967

== ENCOUNTER 2023-11-12 07:34 | Outpatient (CLI) | payer MEDICARE, SELFPAY ==
[2023-11-12 07:57] LABS: Basophils Absolute Auto 0.1 K/mm3 (0.0-0.1); Hematocrit 34.1 % (37.0-47.0); Hemoglobin 11.4 g/dL (12.0-15.0); Immature Granulocyte Absolute 0.02 K/mm3 (0.00-0.031); Immature Granulocyte Percent A 0.7 % (0-0.5); Lymphocytes Absolute Auto 0.81 K/mm3 (0.9-3.2); Lymphocytes Percent Auto 26.5 % (18.3-44.2); Mean Corpuscular HGB Conc 33.4 g/dl (32-36); Mean Corpuscular Hemoglobin 36.3 pg (26-34); Mean Corpuscular Volume 108.6 fl (80-100); Mean Platelet Volume 9.8 fl (7.4-10.4); Monocytes Absolute Auto 0.2 K/mm3 (0.1-0.6); Monocytes Percent Auto 5.9 % (2.6-8.5); Neutrophils Percent Auto 63.9 % (45.5-73.1); Platelet Count Result 136 k/mm3 (150-375); Red Blood Count 3.14 M/mm3 (4.2-5.4); Red Cell Distribution Width 15.3 % (11.5-14.5); White Blood Count 3.1 K/mm3 (4.5-10.0)
[2023-11-12 08:32] LABS: Macrocytosis 1+ (NORMAL); Platelet Estimate Decreased (Adequate); Schistocytes None Seen
[2023-11-12 08:45] LABS: Alanine Aminotransferase 12 U/L (6-35); Alkaline Phosphatase 62 U/L (38-126); Anion Gap 9 mmol/L (4-12); Aspartate Amino Transferase 17 U/L (14-36); Bilirubin,Total 0.6 mg/dL (0.2-1.3); Blood Urea Nitrogen 24 mg/dL (7-17); Calcium 9.5 mg/dL (8.4-10.2); Carbon Dioxide 24 mmol/L (22-30); Chloride 104 mmol/L (98-107); Estimated Glomerular Filt Rate 43; Glucose 153 mg/dL (65-110); Sodium 137 mmol/L (137-145)
[2023-11-13 13:58] LABS: CA 15-3 35 U/mL (<32)
== END 2023-11-12 07:35 | disposition home or self-care (01) ==
LOC: ANHLAB 07:36
PROVIDERS: PCP Emergency Medicine; Visit Provider Internal Medicine Hematology & Oncology
DX: C50.912 Malignant neoplasm of unspecified site of left female breast (principal); Z17.0 Estrogen receptor positive status [ER+]
CPT/HCPCS: 36415; 80053; 85025; 86300

== ENCOUNTER 2024-01-07 07:28 | Outpatient (CLI) | payer MEDICARE, SELFPAY ==
[2024-01-07 07:46] LABS: Basophils Absolute Auto 0.1 K/mm3 (0.0-0.1); Basophils Percent Auto 2.1 % (0.2-1.2); Eosinophils Percent Auto 1.6 % (0-4.4); Hematocrit 35.2 % (37.0-47.0); Hemoglobin 11.5 g/dL (12.0-15.0); Immature Granulocyte Absolute 0.01 K/mm3 (0.00-0.031); Immature Granulocyte Percent A 0.4 % (0-0.5); Lymphocytes Absolute Auto 0.64 K/mm3 (0.9-3.2); Lymphocytes Percent Auto 26.3 % (18.3-44.2); Mean Corpuscular HGB Conc 32.7 g/dl (32-36); Mean Corpuscular Hemoglobin 35.8 pg (26-34); Mean Corpuscular Volume 109.7 fl (80-100); Mean Platelet Volume 9.2 fl (7.4-10.4); Monocytes Absolute Auto 0.1 K/mm3 (0.1-0.6); Monocytes Percent Auto 5.3 % (2.6-8.5); Neutrophils Absolute Auto 1.6 K/mm3 (1.3-6.7); Neutrophils Percent Auto 64.3 % (45.5-73.1); Platelet Count Result 121 k/mm3 (150-375); Red Blood Count 3.21 M/mm3 (4.2-5.4); Red Cell Distribution Width 15.3 % (11.5-14.5); White Blood Count 2.4 K/mm3 (4.5-10.0)
[2024-01-07 08:01] LABS: Alanine Aminotransferase 12 U/L (6-35); Albumin Level 4.3 g/dL (3.5-5.1); Alkaline Phosphatase 66 U/L (38-126); Anion Gap 10 mmol/L (4-12); Aspartate Amino Transferase 22 U/L (14-36); Bilirubin,Total 0.5 mg/dL (0.2-1.3); Blood Urea Nitrogen 23 mg/dL (7-17); Calcium 9.5 mg/dL (8.4-10.2); Carbon Dioxide 26 mmol/L (22-30); Chloride 101 mmol/L (98-107); Estimated Glomerular Filt Rate 48; Glucose 138 mg/dL (65-110); Potassium 3.8 mmol/L (3.4-5.0); Sodium 137 mmol/L (137-145)
[2024-01-07 08:25] LABS: Atypical Lymphocytes Present; Platelet Estimate Slightly Decreased (Adequate); Schistocytes None Seen
[2024-01-08 11:27] LABS: CA 15-3 42 U/mL (<32)
== END 2024-01-07 07:29 | disposition home or self-care (01) ==
PROVIDERS: PCP Emergency Medicine; Visit Provider Internal Medicine Hematology & Oncology
DX: C50.912 Malignant neoplasm of unspecified site of left female breast (principal); Z17.0 Estrogen receptor positive status [ER+]
CPT/HCPCS: 36415; 80053; 85025; 86300

== ENCOUNTER 2024-02-26 07:40 | Outpatient (CLI) | payer MEDICARE, SELFPAY ==
--- NOTE | ~2024-02-26 | CT_ITS ---
Clinical Indication: Breast cancer CT Scan of the Chest, Abdomen, and Pelvis with Contrast: Technique: Contiguous sections were acquired throughout the chest, abdomen, and pelvis after intraven ous administration of 100 cc of Omnipaque 350. Dose reduction technique was used on this scan by mary ann taveraing automated exposure control and iterative reconstruction technique. The dose-length product (DL P) was 1826.04 mGy-cm. Comparison: 09/10/2023 Findings: There is no evidence of any significant mediastinal, hilar or axillary lymphadenopathy. The mediastin al soft tissues and vascular structures appear normal, aside from coronary artery calcifications. No pericardial effusion.. Stable somewhat bandlike/masslike consolidation left upper lobe, most compatible with post radiation change/treated disease. There is probable minimal left basilar pleural fluid with minimal left basila r atelectatic change. Right lung essentially clear. The liver, spleen, pancreas, gallbladder, adrenals and kidneys are within normal limits. There are at herosclerotic calcifications of the aorta. No lymphadenopathy. No bowel obstruction or bowel wall thickening. There is no evidence to suggest acute appendicitis. Urinary bladder is unremarkable. No pelvic mass seen. No ascites. Impression: No evidence for active malignancy or metastatic disease. Stable postradiation change/treated disease in the left upper lobe. Minimal left basilar pleural fluid and minimal left basilar atelectatic change. Reviewed, dictated and finalized at [facility]. BUYER Impression: No evidence for active malignancy or metastatic disease. Stable postradiation change/treated disease in the left upper lobe. Minimal left basilar pleural fluid and minimal left basilar atelectatic change.
[2024-02-26 08:14] LABS: Estimated Glomerular Filt Rate 43
== END 2024-02-26 07:41 | disposition home or self-care (01) ==
PROVIDERS: PCP Emergency Medicine; Visit Provider Internal Medicine Hematology & Oncology
DX: C50.912 Malignant neoplasm of unspecified site of left female breast (principal); Z17.0 Estrogen receptor positive status [ER+]; Z92.3 Personal history of irradiation
CPT/HCPCS: 71260; 74177; Q9967

== ENCOUNTER 2024-03-03 07:49 | Outpatient (CLI) | payer MEDICARE, SELFPAY ==
[2024-03-03 09:06] LABS: Hematocrit 33.9 % (37.0-47.0); Hemoglobin 10.8 g/dL (12.0-15.0); Mean Corpuscular HGB Conc 31.9 g/dl (32-36); Mean Corpuscular Hemoglobin 35.2 pg (26-34); Mean Corpuscular Volume 110.4 fl (80-100); Mean Platelet Volume 9.3 fl (7.4-10.4); Platelet Count Result 153 k/mm3 (150-375); Red Blood Count 3.07 M/mm3 (4.2-5.4); Red Cell Distribution Width 15.2 % (11.5-14.5); White Blood Count 3.3 K/mm3 (4.5-10.0)
[2024-03-03 09:17] LABS: Alanine Aminotransferase 12 U/L (6-35); Albumin Level 3.9 g/dL (3.5-5.1); Alkaline Phosphatase 67 U/L (38-126); Anion Gap 8 mmol/L (4-12); Aspartate Amino Transferase 17 U/L (14-36); Bilirubin,Total 0.6 mg/dL (0.2-1.3); Blood Urea Nitrogen 20 mg/dL (7-17); Calcium 9.5 mg/dL (8.4-10.2); Carbon Dioxide 25 mmol/L (22-30); Chloride 104 mmol/L (98-107); Estimated Glomerular Filt Rate 53; Glucose 124 mg/dL (65-110); Sodium 137 mmol/L (137-145)
[2024-03-03 10:01] LABS: Band Neutrophils Percent 3 % (0-6); Basophils Absolute Manual 0.03 K/mm3 (0.0-0.1); Basophils Percent Manual 1 % (0-1); Eosinophils Absolute Manual 0.06 K/mm3 (0.02-0.50); Eosinophils Percent Manual 2 % (0-4); Lymphocytes Absolute Manual 0.62 K/mm3 (1.1-4.5); Lymphocytes Percent Manual 19 % (18-44); Monocytes Absolute Manual 0.16 K/mm3 (0.1-0.90); Monocytes Percent Manual 5 % (3-9); Neutrophils Percent Manual 70 % (46-73); Total Cells Counted 100
[2024-03-03 10:02] LABS: Platelet Estimate Adequate (Adequate); Schistocytes None Seen
[2024-03-04 07:22] LABS: CA 15-3 38 U/mL (<32)
== END 2024-03-03 07:50 | disposition home or self-care (01) ==
PROVIDERS: PCP Emergency Medicine; Visit Provider Internal Medicine Hematology & Oncology
DX: C50.912 Malignant neoplasm of unspecified site of left female breast (principal); Z17.0 Estrogen receptor positive status [ER+]
CPT/HCPCS: 36415; 80053; 85025; 86300

== ENCOUNTER 2024-06-16 08:00 | Outpatient (CLI) | payer MEDICARE, SELFPAY ==
--- OUTSIDE RECORDS SUMMARY | 2024-06-16 08:11 | XMS_ITS | Clinical Summary ---
Author Organization [facility] Address [address], [address] [address] Phone Care Team Providers Care Referral Agent Name Role Phone Unavailable Primary Care Provider Unavailabl e Medications metFORMIN (GLUCOPHAGE) 500 MG Tablet Take 500 mg by mouth 2 times daily (with meals). Active valsartan-hydroC HLOROthiazide (DIOVAN-HCT) 320-12.5 MG Tablet Take 1 Tab by mouth daily. Active Ergocalciferol (VITAMIN D2 PO) Take 500,000 Units by mouth. Active amLODIPine (NORVASC) 5 MG Tablet Take 5 mg by mouth daily. Active levothyroxine (SYNTHROID) 150 MCG Tablet Take 150 mcg by mouth daily. Active Loratadine 10 MG Capsule Take by mouth. Active naproxen sodium (ANAPROX) 220 MG Tablet Take 220 mg by mouth 2 times daily (with meals). Active Family History Medical History Relation Name Comments Cancer Father Throat Cancer Heart Disease Father Colon Cancer Mother Relation Name Status Comments Father Mother Social History Tobacco Use Types Packs/Day Years Used Date Smoking Tobacco: Never Alcohol Use Standard Drinks/Week Comments Yes 0 (1 standard drink = 0.6 oz pur e alcohol) Comments Unknown Sex and Gender Information Value Date Recorded Sex Assigned at Not on file Legal Sex Female 8:10 PM CDT Gender Identity Not on file Sexual Orientation Not on file Plan of Treatment Health Maintenance Due Date Last Done Comments DEXA Bone Density 1940 Hepatitis C Virus (HCV) Screening 1940 TdaP Immunization 1940 Mammogram 11/22/1950 Pneumococcal Immunization (5 0+ years) (1 of 1 - PCV) 11/22/1991 Zoster Immunization (1 of 2) 11/22/1991 Respiratory Syncytial Virus (RSV) Immunization (Adult) (1 - 1-dose 75+ series) 2016 Influenza Immunization (#1) 2023 SARS-COV-2 Immunization ( season) 2023 Hepatitis B Immunization Aged Out No longer eligible based on patient's age to complete this topic Meningococcal Immunization (ACWY) Aged Out No longer eligible based on patient's age to complete this topic Rotavirus Immunization Aged Out No lo nger eligible based on patient's age to complete this topic
--- OUTSIDE RECORDS SUMMARY | 2024-06-16 08:11 | XMS_ITS | Encounter Summary ---
Author Organization [facility] Address [address] [place] [address] Care Team Providers Care Pattern Checker Name Role Phone Brody Bhatia MD Primary Care Provider Encounter Details Date Type Department Care Team (Latest Contact Info) Description 07/23/2008 Outpatient Historical [facility] Tarah Mills MD [address] [place] [id number] Abnormal Mammogram, Unspecified Social History Tobacco Use Types Packs/Day Years Used Date Smoking Tobacco: Never Assessed Comments Unknown Sex and Gender Information Value Date Recorded Sex Assigned at Not on file Legal Sex Female 5:39 AM [employer] Gender Identity Not on file Sexual Orientation Not on file documented as of this encounter Plan of Treatment Upcoming Encounters Date Type Department Care Team (Late st Contact Info) Description 06/20/2024 11:45 AM CDT Office Visit [facility] - [place] [address] [place] [address] Saud Chance MD [address] [place] [address] documented as of this encounter Procedures Procedure Name Priority Date/Time Associated Diagnosis Comments MAMMO CONSULTATION Routine 07/23/2008 9: 06 AM CDT MAMMO BREAST SPECIMEN LT Routine 07/23/2008 9:06 AM CDT MAMMO DIAGNOSTIC UNI LEFT W OR WO CAD Routine 07/23/2008 9:05 AM CDT MAMMO NEEDLE LOC EA LESION LT Routine 07/23/2008 9:05 AM CDT documented in this encounter Results * MAMMO CONSULTATION (07/23/2008 9:06 AM CDT) 07/23/2008 9:06 AM CDT Narrative INTERFACE SYSTEM - 08/04/2008 11:58 AM CDT [facility] [address] [place], [place] [address] Admit Date: 07/23/2008 NASIM ROJAS Sex: F Admit Prov: GENEKOLETARAH Date: 1940 Primary Care Prov: PCP, UNKNOWN CMRN: [id number] Room: [facility] SSN: [id number] IMAGING SERVICES Ordering Prov: TARAH MILLS Accession Number: [id number] Addendum ADDENDUM TO PROCEDURE NOTE OF 07/23/2008: Mammography needle localization. The patient had a group of calcifications from the left breast localized and excised. The pathology report describes benign calcifications related to dystrophic change. There was no atypia or evidence of malignancy. The imaging findings are in concordance with this pathology report. This is a false positive case. Dictated by: JOSH ARIZA Electronically signed by: JOSH ARIZA 08/04/2008 11:58 Transcribed: 08/04/2008 10:51 DKT Interpretation LEFT BREAST PREOPERATIVE NEEDLE LOCALIZATION USING DIGITAL MAMMOGRAPHIC GUIDANCE. 07/23/2008 History: Abnormal mammogram, personal history of treated breast cancer, new indeterminate breast calcifications in the area of the prior lumpectomy. Procedure and findings: Preoperative left breast needle localization procedure was performed with digital mammographic guidance. The breast was placed in a compression grid and medial-lateral localization digital mammogram obtained. The cluster of indeterminate microcalcifications is visualized at the deep lower inner quadrant base of the breast at the previous surgical lumpectomy site. Skin overlying this area was prepared with Betadine. Under 1% local lidocaine anesthesia a Bard Ghiatas type localization needle was placed with mediolateral approach. Repeat digital imaging shows the needle to be aligned with the calcifications. Subsequent craniocaudad image was obtained showing satisfactory placement of the needle. Approximately 0.3 mL methylene blue dye was then instilled into the needle hub prior to insertion of the beaded hooked localization wire followed by removal of the needle. The patient tolerated the procedure satisfactorily with no untoward effects. Subsequent orthogonal digital mammography study performed shows satisfactory placement of the metallic density localization wire with its tip residing anteriorly to and about 1.5 cm deep in close proximity to the targeted microcalcifications. These images were marked for the surgeon and the patient transferred to the holding area for subsequent surgical excision. IMPRESSION: Satisfactory preoperative left breast needle localization procedure performed. Report revised on 08/04/2008 11:58:10 AM by JOSH ARIZA Dictated by: VASU REGAN Electronically signed by: VASU REGAN 07/23/2008 20:44 Transcribed: 07/23/2008 14:11 AMK Procedure Note Provider, Historical / Josh Ariza MD - 08/04/[address] [address] Admit Date: 07/23/2008 NASIM ROJAS Sex: F Admit Prov: MADISYNTARAH DIAZ Date: 1940 Primary Care Prov: PCP, UNKNOWN CMRN: [id number] Room: [facility] SSN: [address] [place] [address] IMAGING SERVICES Ordering Prov: TARAH MILLS Addendum ADDENDUM TO PROCEDURE NOTE OF 07/23/2008: Mammography needle localization. The patient had a group of calcifications from the left breastlocalized and excised. The pathology report describes benign calcificationsrelated to dystrophic change. There was no atypia or evidence of malignancy.The imaging findings are in concordance with this pathology report. Thisis a false positive case. Dictated by: JOSH ARIZA Electronically signed by: JOSH ARIZA 08/04/2008 11:58 Transcribed: 08/04/2008 10:51 DKT Interpretation LEFT BREAST PREOPERATIVE NEEDLE LOCALIZATION USING DIGITALMAMMOGRAPHIC GUIDANCE. 07/23/2008 History: Abnormal mammogram, personal history of treated breastcancer, new indeterminate breast calcifications in the area of the priorlumpectomy. Procedure and findings: Preoperative left breast needlelocalization procedure was performed with digital mammographic guidance. Thebreast was placed in a compression grid and medial-lateral localizationdigital mammogram obtained. The cluster of indeterminate microcalcificationsis visualized at the deep lower inner quadrant base of the breast atthe previous surgical lumpectomy site. Skin overlying this area wasprepared with Betadine. Under 1% local lidocaine anesthesia a [employer]astype localization needle was placed with mediolateral approach. Repeatdigital imaging shows the needle to be aligned with the calcifications.Subsequent craniocaudad image was obtained showing satisfactory placement ofthe needle. Approximately 0.3 mL methylene blue dye was then instilledinto the needle hub prior to insertion of the beaded hooked localizationwire followed by removal of the needle. The patient tolerated theprocedure satisfactorily with no untoward effects. Subsequent orthogonal digital mammography study performed shows satisfactory placement of the metallic density localization wire withits tip residing anteriorly to and about 1.5 cm deep in close proximityto the targeted microcalcifications. These images were marked for thesurgeon and the patient transferred to the holding area for subsequent surgical excision. IMPRESSION: Satisfactory preoperative left breast needlelocalization procedure performed. Report revised on 08/04/2008 11:58:10 AM by JOSH ARIZA Dictated by: VASU REGAN Electronically signed by: VASU REGAN 07/23/2008 20:44 Transcribed: 07/23/2008 14:11 AMK us Tarah Mills MD MAMMO ORDERABLES Edited INTERFACE SYSTEM Refer to clinic/hospital department * MAMMO BREAST SPECIMEN LT (07/23/2008 9:06 AM CDT) Anatomical Region Laterality Modality Breast Left Other 07/23/2008 9:06 AM CDT Narrative 07/23/2008 8:45 PM CDT [facility] [address] [place], [place] [address] Admit Date: 07/23/2008 NASIM ROJAS: F Admit Prov: TARAH MILLS Date: 1940 Primary Care Prov: PCP, UNKNOWN CMRN: [id number] [facility] [address] [place] [address] IMAGING SERVICES Ordering Prov: TARAH MILLS Accession Number: [id number] Interpretation LEFT BREAST SPECIMEN RADIOGRAPH 07/23/2008 History: Abnormal mammograms, personal history of breast cancer, breast calcifications The left breast surgical specimen obtained is digitally radiographed confirming that it contains the distal extent of the hooked localization wire with clustered microcalcifications in close proximity to the distal beaded stiff segment of the wire. IMPRESSION: Preoperatively needle localized cluster of microcalcifications confirmed in the left breast surgical lumpectomy specimen. Dictated by: VASU REGAN Electronically signed by: VASU REGAN 07/23/2008 20:44 Transcribed: 07/23/2008 14:14 AMK Procedure Note Provider, Historical - 07/23/2008 [facility] [address] [place], [place] [address] Admit Date: 07/23/2008 NASIM ROJAS Sex: F Admit Prov: TARAH MILLS Date: 1940 Primary Care Prov: PCP, UNKNOWN CMRN: [id number] [facility] [address] [place] [address] IMAGING SERVICES Ordering Prov: TARAH IMLLS Interpretation LEFT BREAST SPECIMEN RADIOGRAPH 07/23/2008 History: Abnormal mammograms, personal history of breast cancer,breast calcifications The left breast surgical specimen obtained is digitallyradiographed confirming that it contains the distal extent of the hookedlocalization wire with clustered microcalcifications in close proximity to thedistal beaded stiff segment of the wire. IMPRESSION: Preoperatively needle localized cluster ofmicrocalcifications confirmed in the left breast surgical lumpectomy specimen. Dictated by: VASU REGAN Electronically signed by: VASU REGAN 07/23/2008 20:44 Transcribed: 07/23/2008 14:14 AMK us Tarah Mills MD MAMMO ORDERABLES Final Resul t * MAMMO DIGITAL DIAG UNI LEFT (07/23/2008 9:05 AM CDT) Anatomical Region Laterality Modality Breast Left Other 07/23/2008 9:05 AM CDT Narrative 07/23/2008 8:45 PM CDT [facility] [address] [place], [place] [address] Admit Date: 07/23/2008 NASIM ROJAS Sex: F Admit Prov: TARAH MILLS Date: 1940 Primary Care Prov: PCP, UNKNOWN CMRN: [id number] Room: [facility] SSN: [id number] IMAGING SERVICES Ordering Prov: TARAH MILLS Accession Number: [id number] Interpretation LEFT BREAST PREOPERATIVE NEEDLE LOCALIZATION USING DIGITAL MAMMOGRAPHIC GUIDANCE. 07/23/2008 History: Abnormal mammogram, personal history of treated breast cancer, new indeterminate breast calcifications in the area of the prior lumpectomy. Procedure and findings: Preoperative left breast needle localization procedure was performed with digital mammographic guidance. The breast was placed in a compression grid and medial-lateral localization digital mammogram obtained. The cluster of indeterminate microcalcifications is visualized at the deep lower inner quadrant base of the breast at the previous surgical lumpectomy site. Skin overlying this area was prepared with Betadine. Under 1% local lidocaine anesthesia a Bard Ghiatas type localization needle was placed with mediolateral approach. Repeat digital imaging shows the needle to be aligned with the calcifications. Subsequent craniocaudad image was obtained showing satisfactory placement of the needle. Approximately 0.3 mL methylene blue dye was then instilled into the needle hub prior to insertion of the beaded hooked localization wire followed by removal of the needle. The patient tolerated the procedure satisfactorily with no untoward effects. Subsequent orthogonal digital mammography study performed shows satisfactory placement of the metallic density localization wire with its tip residing anteriorly to and about 1.5 cm deep in close proximity to the targeted microcalcifications. These images were marked for the surgeon and the patient transferred to the holding area for subsequent surgical excision. IMPRESSION: Satisfactory preoperative left breast needle localization procedure performed. Assessment BIRADS: Post procedure mammograms for marker placement Recommendation: No recommendation required Dictated by: VASU REGAN Electronically signed by: VASU REGAN 07/23/2008 20:44 Transcribed: 07/23/2008 14:11 AMK Procedure Note Provider, Historical - 07/23/2008 [facility] [address] [place], [place] [address] Admit Date: 07/23/2008 NASIM ROJAS Sex: F Admit Prov: TARAH MILLS Date: 1940 Primary Care Prov: PCP, UNKNOWN CMRN: [id number] Room: [facility] SSN: [id number] IMAGING SERVICES Ordering Prov: TARAH MILLS Interpretation LEFT BREAST PREOPERATIVE NEEDLE LOCALIZATION USING DIGITALMAMMOGRAPHIC GUIDANCE. 07/23/2008 History: Abnormal mammogram, personal history of treated breastcancer, new indeterminate breast calcifications in the area of the priorlumpectomy. Procedure and findings: Preoperative left breast needlelocalization procedure was performed with digital mammographic guidance. Thebreast was placed in a compression grid and medial-lateral localizationdigital mammogram obtained. The cluster of indeterminate microcalcificationsis visualized at the deep lower inner quadrant base of the breast atthe previous surgical lumpectomy site. Skin overlying this area wasprepared with Betadine. Under 1% local lidocaine anesthesia a [employer] G[employer]astype localization needle was placed with mediolateral approach. Repeatdigital imaging shows the needle to be aligned with the calcifications.Subsequent craniocaudad image was obtained showing satisfactory placement ofthe needle. Approximately 0.3 mL methylene blue dye was then instilledinto the needle hub prior to insertion of the beaded hooked localizationwire followed by removal of the needle. The patient tolerated theprocedure satisfactorily with no untoward effects. Subsequent orthogonal digital mammography study performed shows satisfactory placement of the metallic density localization wire withits tip residing anteriorly to and about 1.5 cm deep in close proximityto the targeted microcalcifications. These images were marked for thesurgeon and the patient transferred to the holding area for subsequent surgical excision. IMPRESSION: Satisfactory preoperative left breast needlelocalization procedure performed. Assessment BIRADS: Post procedure mammograms for marker placement Recommendation: No recommendation required Dictated by: VASU REGAN Electronically signed by: VASU REGAN 07/23/2008 20:44 Transcribed: 07/23/2008 14:11 AMK us Tarah Mills MD MAMMO ORDERABLES Final Resul t * MAMMO NEEDLE LOC EA LESION LT (07/23/2008 9:05 AM CDT) Anatomical Region Laterality Modality Breast Left Other 07/23/2008 9:05 AM CDT Narrative 07/23/2008 8:45 PM CDT [address] [id number] [place], [place] [address] Admit Date: 07/23/2008 NASIM ROJAS Sex: F Admit Prov: TARAH MILLS Date: 1940 Primary Care Prov: PCP, UNKNOWN CMRN: [id number] Room: [facility] SSN: [id number] IMAGING SERVICES Ordering Prov: TARAH MILLS Accession Number: [id number] Interpretation LEFT BREAST PREOPERATIVE NEEDLE LOCALIZATION USING DIGITAL MAMMOGRAPHIC GUIDANCE. 07/23/2008 History: Abnormal mammogram, personal history of treated breast cancer, new indeterminate breast calcifications in the area of the prior lumpectomy. Procedure and findings: Preoperative left breast needle localization procedure was performed with digital mammographic guidance. The breast was placed in a compression grid and medial-lateral localization digital mammogram obtained. The cluster of indeterminate microcalcifications is visualized at the deep lower inner quadrant base of the breast at the previous surgical lumpectomy site. Skin overlying this area was prepared with Betadine. Under 1% local lidocaine anesthesia a Bard Ghiatas type localization needle was placed with mediolateral approach. Repeat digital imaging shows the needle to be aligned with the calcifications. Subsequent craniocaudad image was obtained showing satisfactory placement of the needle. Approximately 0.3 mL methylene blue dye was then instilled into the needle hub prior to insertion of the beaded hooked localization wire followed by removal of the needle. The patient tolerated the procedure satisfactorily with no untoward effects. Subsequent orthogonal digital mammography study performed shows satisfactory placement of the metallic density localization wire with its tip residing anteriorly to and about 1.5 cm deep in close proximity to the targeted microcalcifications. These images were marked for the surgeon and the patient transferred to the holding area for subsequent surgical excision. IMPRESSION: Satisfactory preoperative left breast needle localization procedure performed. Assessment BIRADS: Post procedure mammograms for marker placement Recommendation: No recommendation required Dictated by: VASU REGAN Electronically signed by: VASU REGAN 07/23/2008 20:44 Transcribed: 07/23/2008 14:11 AMK Procedure Note Provider, Historical - 07/24/2008 [facility] [address] [place], [place] [address] Admit Date: 07/23/2008 NASIM ROJAS Sex: F Admit Prov: GENEKOLETARAH Date: 1940 Primary Care Prov: PCP, UNKNOWN CMRN: [id number] Room: [facility] SSN: [id number] IMAGING SERVICES Ordering Prov: TARAH MILLS Interpretation LEFT BREAST PREOPERATIVE NEEDLE LOCALIZATION USING DIGITALMAMMOGRAPHIC GUIDANCE. 07/23/2008 History: Abnormal mammogram, personal history of treated breastcancer, new indeterminate breast calcifications in the area of the priorlumpectomy. Procedure and findings: Preoperative left breast needlelocalization procedure was performed with digital mammographic guidance. Thebreast was placed in a compression grid and medial-lateral localizationdigital mammogram obtained. The cluster of indeterminate microcalcificationsis visualized at the deep lower inner quadrant base of the breast atthe previous surgical lumpectomy site. Skin overlying this area wasprepared with Betadine. Under 1% local lidocaine anesthesia a [employer] G[employer]astype localization needle was placed with mediolateral approach. Repeatdigital imaging shows the needle to be aligned with the calcifications.Subsequent craniocaudad image was obtained showing satisfactory placement ofthe needle. Approximately 0.3 mL methylene blue dye was then instilledinto the needle hub prior to insertion of the beaded hooked localizationwire followed by removal of the needle. The patient tolerated theprocedure satisfactorily with no untoward effects. Subsequent orthogonal digital mammography study performed shows satisfactory placement of the metallic density localization wire withits tip residing anteriorly to and about 1.5 cm deep in close proximityto the targeted microcalcifications. These images were marked for thesurgeon and the patient transferred to the holding area for subsequent surgical excision. IMPRESSION: Satisfactory preoperative left breast needlelocalization procedure performed. Assessment BIRADS: Post procedure mammograms for marker placement Recommendation: No recommendation required Dictated by: VASU REGAN Electronically signed by: VASU REGAN 07/23/2008 20:44 Transcribed: 07/23/2008 14:11 AMK us Tarah Mills MD MAMMO ORDERABLES Final Resul t documented in this encounter Visit Diagnoses Diagnosis Abnormal mammogram, unspecified documented in this encounter Care Teams Pattern Checker Relationship Specialty Start Date End Date Brody Bhatia MD [address] [place] [phone] PCP - General Internal Medicine 10/01/15 documented as of this encounter
--- OUTSIDE RECORDS SUMMARY | 2024-06-16 08:12 | XMS_ITS | Clinical Summary ---
Author Organization [facility] Administrative Offices Address [address] [place] [address] Care Team Providers Care Analytics Associate Name Role Phone Brody Bhatia MD Primary Care Provider [phone] Allergies No known active allergies Medications IBUPROFEN PO Take by mouth. Prn for knee pain. Active MULTIVITAMINS WITH FLUORIDE (MULTI VIT-FLUORIDE ORAL) Take by mouth. Activ e OMEGA-3 FATTY ACIDS (FISH OIL ORAL) Take by mouth. Activ e fluticasone (FLONASE) 50 mcg/spray [place], Suspension 4 Active metFORMIN (GLUCOPHAGE) 500 mg tablet 6 Active levothyroxine 150 mcg tablet 6 Active ergocalciferol (VITAMIN D2) 50,000 unit capsule 6 Active amLODIPine (NORVASC) 5 mg tablet 6 Active valsartan-hydro CHLOROthiazide (DIOVAN HCT) 160-12.5 mg tablet 7 Active montelukast (SINGULAIR) 10 mg tablet 7 Active aspirin (WENDY CHEWABLE) 81 mg Tablet, Chewable Take 81 mg by mouth daily. Active atorvastatin (LIPITOR) 20 mg tablet 2 Active amLODIPine (NORVASC) 10 mg tablet amlodipine 10 mg tablet Active palbociclib (Ibrance) 125 mg capsule Take 1 Capsule (125 mg) by mouth daily with breakfast. Take 1 capsule for 21 days on and 7 days off 21 Capsule 6 2 Active losartan-hydroC HLOROthiazide (HYZAAR) 50-12.5 mg tablet 2 Active losartan (COZAAR) 50 mg tablet 2 Active azithromycin (ZITHROMAX) 250 mg tablet 3 Active anastrozole (ARIMIDEX) 1 mg tablet TAKE 1 TABLET (1 MG) BY MOUTH DAILY. 90 Tablet 3 4 Active palbociclib (Ibrance) 125 mg tablet TAKE 1 TABLET BY MOUTH DAILY WITH BREAKFAST FOR 21 DAYS ON, THEN 7 DAYS OFF. 21 Tablet 6 5 Active Active Problems Patient Care Coordination No te Formatting of this note migh t be different from the original. Primary Care: Brody Bhatia MD Referring Provider: Brody Bhatia MD [address] [facility] [address] [place] [id number] Other: Problem Noted Date Diagnosed Date Encounter for screening mammogram for high-risk patient 10/05/2015 Diabetes 11/11/2008 HTN (hypertension) 11/11/2008 Overview (04/19/2010): Updating IMO/ICD9 Code and Description Hypothyroidism 11/11/2008 S/P TKR (total knee replacement) 11/11/2008 Metastatic breast cancer 11/11/2008 Overview (12/20/2012): 07/16/07 Stage I ( T1c N0 Mx) IDC LEFT breast ER 95% MS 96% HER2/john - Ki67 44% S/p lumpectomy and SLND s/p TC x 4 (allergic rxn c2) 12/31/07 Radiation complete 02/07/08 ARIMIDEX x 5 yaers Assessment & Plan (12/20/2012 11:13 AM CDT): 5 1/2 years out On AI - OK TO STOP mammo arpril Assessment & Plan (12/15/2011 3:11 PM CDT): 4 1/2 years out On AI ROV 1 year mammo june Assessment & Plan (12/09/2010 2:17 PM CDT): 3 yeas out On AI MEGGAN ROV 1 year Mammo June [address] Weber Losing weight with WW Assessment & Plan (12/03/2009 3:50 PM CDT): 2 yrs out On AI MEGGAN ROV 1 year Assessment & Plan (05/24/2009 4:21 PM TEST RACK OPERATOR): Mammogram due in July WEIGHT at last visit was ERROR - she's stable in weight Colonoscopy next year DM, hypothyroid On AI until 2011 ROV 6 months Assessment & Plan (11/12/2008 2:19 PM CDT): Back in [place]; has hot flashes. Feels good. Mammogram in July Colonoscopy last year (q3 yrs) PLAN: cont AI ROV 6 months Mammogram next year in July with MACKENZIE Resolved Problems Problem Noted Date Diagnosed Date Resolved Date Lung mass 05/12/2021 06/02/2021 Encounters Date Type Department Care Team Description 06/11/2024 External Device Data STL ABSTRACTION Provider, Abstract 06/11/2024 External Device Data STL ABSTRACTION Provider, Abstract 05/31/2024 External Device Data STL ABSTRACTION Provider, Abstract 05/30/2024 External Device Data STL ABSTRACTION Provider, Abstract 05/13/2024 External Device Data STL ABSTRACTION Provider, Abstract 05/10/2024 [facility] Neurology [address] [place] [phone] Inna Myers MD 04/24/2024 [facility] Oncology and Hematology - [place] [address] [place] [address] [facility] [address] [place] [address] Saud Chance MD 04/22/2024 External Device Data STL ABSTRACTION Provider, Abstract 04/16/2024 External Device Data STL ABSTRACTION Provider, Abstract 04/16/2024 External Device Data STL ABSTRACTION Provider, Abstract from Last 3 Months Family History Medical History Relation Name Comments Healthy Daughter Cancer Father mouth Heart Disease Father Stroke Father Colon Cancer Mother Healthy Son Relation Name Status Comments Daughter Alive Father Mother Son Alive Social History Tobacco Use Types Packs/Day Years Used Date Smoking Tobacco: Never Smokeless Tobacco: Never Tobacco Cessation:Counseling Given: Not Answered Alcohol Use Standard Drinks/Week Comments No 0 (1 standard drink = 0.6 oz pur e alcohol) RARE Comments No Sex and Gender Information Value Date Recorded Sex Assigned at Not on file Legal Sex Female 5:39 AM TEST RACK 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 Gender Identity Not on file Sexual Orientation Not on file 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 Not on file Not on file Not on file Last Filed Vital Signs Vital Sign Reading Time Taken Comments Blood Pressure 124/62 03/11/2024 11:45 AM TEST RACK OPERATOR Pulse 68 03/11/2024 11:45 AM TEST RACK OPERATOR Temperature 36.6 C (97.8 F) 03/11/2024 11:45 AM TEST RACK OPERATOR Respiratory Rate 16 03/11/2024 11:45 AM TEST RACK OPERATOR Oxygen Saturation 92% 03/11/2024 11:45 AM TEST RACK OPERATOR Inhaled Oxygen Concentration - - Weight 123.4 kg (272 lb) 03/11/2024 11:45 AM TEST RACK OPERATOR Height 165.1 cm (5' 5 ) 12/12/2021 11:46 AM CDT Body Mass Index 45.26 12/12/2021 11:46 AM CDT Plan of Treatment Upcoming Encounters Date Type Department Care Team (Late st Contact Info) Description 06/20/2024 11:45 AM CDT Office Visit [facility] Oncology and Hematology - [place] [address] [facility] [address] [place] [address] Saud Chance MD [address] [facility] [address] [place] [address] Health Maintenance Due Date Last Done Comments DTAP/TDAP/TD VACCINES (1 - Tdap) 1960 PNEUMOCOCCAL VACCINE 50+ YEARS (1 of 1 - PCV) 11/21/18 92 ZOSTER VACCINE (1 of 2) 11/22/1991 OSTEOPOROSIS SCREENING 2006 RSV VACCINE (60+ or ) (1 - 1-dose 75+ series) 2016 INFLUENZA VACCINE (#1) 2023 Medicare [place] Prev entative Visit/Annual Wellness Visit 03/26/2024 Insurance Care Teams Analytics Associate Relationship Specialty Start Date End Date Brody Bhatia MD [address] [place] [phone] PCP - General Internal Medicine 10/01/15
[2024-06-16 08:25] LABS: Basophils Absolute Auto 0.1 K/mm3 (0.0-0.1); Basophils Percent Auto 2.2 % (0.2-1.2); Eosinophils Percent Auto 0.3 % (0-4.4); Hematocrit 35.3 % (37.0-47.0); Hemoglobin 11.4 g/dL (12.0-15.0); Immature Granulocyte Absolute 0.03 K/mm3 (0.00-0.031); Lymphocytes Absolute Auto 0.63 K/mm3 (0.9-3.2); Lymphocytes Percent Auto 20.2 % (18.3-44.2); Mean Corpuscular HGB Conc 32.3 g/dl (32-36); Mean Corpuscular Hemoglobin 35.4 pg (26-34); Mean Corpuscular Volume 109.6 fl (80-100); Mean Platelet Volume 8.9 fl (7.4-10.4); Monocytes Absolute Auto 0.2 K/mm3 (0.1-0.6); Monocytes Percent Auto 6.4 % (2.6-8.5); Neutrophils Absolute Auto 2.2 K/mm3 (1.3-6.7); Neutrophils Percent Auto 69.9 % (45.5-73.1); Platelet Count Result 200 k/mm3 (150-375); Red Blood Count 3.22 M/mm3 (4.2-5.4); Red Cell Distribution Width 15.4 % (11.5-14.5); White Blood Count 3.1 K/mm3 (4.5-10.0)
[2024-06-16 08:36] LABS: Alanine Aminotransferase 14 U/L (6-35); Albumin Level 4.1 g/dL (3.5-5.1); Alkaline Phosphatase 67 U/L (38-126); Anion Gap 9 mmol/L (4-12); Aspartate Amino Transferase 20 U/L (14-36); Bilirubin,Total 0.6 mg/dL (0.2-1.3); Blood Urea Nitrogen 28 mg/dL (7-17); Calcium 9.6 mg/dL (8.4-10.2); Carbon Dioxide 27 mmol/L (22-30); Chloride 103 mmol/L (98-107); Estimated Glomerular Filt Rate 42; Glucose 147 mg/dL (65-110); Potassium 4.1 mmol/L (3.4-5.0); Sodium 139 mmol/L (137-145)
[2024-06-16 08:46] LABS: Macrocytosis 1+ (NORMAL); Ovalocytes 1+; Platelet Estimate Adequate (Adequate); Schistocytes None Seen
[2024-06-17 05:49] LABS: CA 15-3 37 U/mL (<32)
== END 2024-06-16 08:01 | disposition home or self-care (01) ==
LOC: ANHLAB 08:02
PROVIDERS: PCP Emergency Medicine; Visit Provider Internal Medicine Hematology & Oncology
DX: C50.912 Malignant neoplasm of unspecified site of left female breast (principal); Z17.0 Estrogen receptor positive status [ER+]
CPT/HCPCS: 36415; 80053; 85025; 86300

== ENCOUNTER 2024-10-09 07:04 | Outpatient (CLI) | payer MEDICARE, SELFPAY ==
--- NOTE | ~2024-10-09 | US_ITS ---
EXAMINATION: US carotid duplex BI DATE: 10/09/2024 08:02 INDICATION: Right facial droop TECHNIQUE: Grayscale, color Doppler, and pulsed Doppler images of the cervical carotid arteries were obtained. The degree of vessel stenosis is placed in one of the following categories: normal, <50%, 5 0-69%, >=70% but less than near-occlusion, near-occlusion, or total occlusion. Note that percent sten osis relative to normal distal artery lumen diameter is indirectly measured from velocity measurement s as described by Miller, et al. Radiology 2003; 229:340-346. Notes: Normal: Peak systolic velocity <125 centimeters/sec and no plaque <50%. Peak systolic velocity <125 ( EDV <40; ICA/CCA PSV ratio <2.0; used these factors only a tandem lesions or low cardiac output or co ntralateral disease) 50-69 %: PSV 125-230 (EDV 40-100; ratio 2-4) >= 70% but less than near occlusion: PSV greater than 230 (EDV > 100; ratio> 4.0) Near Occlusion: PSV that is variable; markedly narrowed lumen Occlusion: Absent flow on color/spectral Doppler and no lumen on zarco scale. COMPARISON: None. FINDINGS: RIGHT: The right common carotid artery (CCA) peak systolic velocity (PSV) is 117 cm/s. The right internal ca rotid artery (ICA) PSV is 61 cm/s. The right ICA end-diastolic velocity (EDV) is 10 cm/s. The right I CA/CCA PSV ratio is 0.53. The external carotid artery (ECA) PSV is 103 cm/s. There is antegrade flow in the right vertebral artery. LEFT: The left CCA PSV is 141 cm/s. The left ICA PSV is 75 cm/s. The left ICA EDV is 11 cm/s. The left ICA/ CCA PSV ratio is 0.53. The ECA PSV is 84 cm/s. There is antegrade flow in the left vertebral artery. IMPRESSION: 1. Less than 50% stenosis in the right internal carotid artery by sonographic criteria. 2. Less than 50% stenosis in the left internal carotid artery by sonographic criteria. Reviewed, dictated and finalized at location B. IMPRESSION: 1. Less than 50% stenosis in the right internal carotid artery by sonographic shefali hope. 2. Less than 50% stenosis in the left internal carotid artery by sonographic sun hernandez.
--- OUTSIDE RECORDS SUMMARY | 2024-10-09 07:11 | XMS_ITS | Clinical Summary ---
Author Organization [facility] Address [address], [address] [address] Phone Care Team Providers Care Php Wordpress Developer Name Role Phone Unavailable Primary Care Provider [...]
--- OUTSIDE RECORDS SUMMARY | 2024-10-09 07:11 | XMS_ITS | Encounter Summary ---
Author Organization [facility] Address [address] [place] [address] Care Team Providers Care Apartment Coordinator Name Role Phone Brody Bhatia MD Primary Care Provider [phone] Encounter Details Date Type Department Care Team (Late Contact Info) Description 10/07/2024 External Device Data STL ABSTRACTION Provider, Abstract NO ADDRESS ON FILE Social History Tobacco Use Types Packs/Day Years Used Date Smoking Tobacco: Never Smokeless Tobacco: Never Alcohol Use Standard Drinks/Week Comments No 0 (1 standard drink = 0.6 oz pur e alcohol) RARE Comments No Sex and Gender Information Value Date Recorded Sex Assigned at Not on file Legal Sex Female 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 Gender Identity Not on file Sexual Orientation Not on file 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 Not on file Not on file Not on file documented as of this encounter Plan of Treatment Upcoming Encounters Date Type Department Care Team (Late Contact Info) Description 10/23/2024 3:45 PM CDT Office Visit [facility] Oncology and Hematology - [place] [address] [place] [address] Saud Chance MD [address] [facility] [address] [place] [address] documented as of this encounter Visit Diagnoses Not on filedocumented in this encounter Care Teams Apartment Coordinator Relationship Specialty Start Date End Date Brody Bhatia MD [address] [place] [address] PCP - General Internal Medicine 10/01/15 documented as of this encounter
--- OUTSIDE RECORDS SUMMARY | 2024-10-09 07:11 | XMS_ITS | Clinical Summary ---
Author Organization [facility] Administrative Offices Address [address] [place] [address] Care Team Providers Care Wind Field Manager Name Role Phone Brody Bhatia MD Primary Care Provider [phone] Allergies No known active allergies Medications IBUPROFEN PO Take by mouth. Prn for knee pain. Active MULTIVITAMINS WITH FLUORIDE (MULTI VIT-FLUORIDE ORAL) Take by mouth. Activ e OMEGA-3 FATTY ACIDS (FISH OIL ORAL) Take by mouth. Activ e fluticasone (FLONASE) 50 mcg/spray [place], Suspension 4 Active metFORMIN (GLUCOPHAGE) 500 mg [...] Bhatia MD Referring Provider: Brody Bhatia MD [address] [facility] [address] [place] [id number] Other: Problem Noted Date Diagnosed Date Encounter for screening mammogram for high-risk patient 10/05/2015 Diabetes 11/11/2008 HTN (hypertension) 11/11/2008 Overview (04/19/2010): Updating IMO/ICD9 Code and Description Hypothyroidism 11/11/2008 S/P TKR (total knee replacement) 11/11/2008 Metastatic breast cancer 11/11/2008 Overview (12/20/2012): 07/16/07 Stage I ( T1c N0 Mx) IDC LEFT breast ER 95% [place] 96% HER2/john - Ki67 44% S/p lumpectomy [...] year Assessment & Plan (05/24/2009 4:21 PM MANUFACTURING PLANT 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): Mammogram due in July WEIGHT at last [...] Encounters Date Type Department Care Team Description 10/07/2024 External Device Data STL ABSTRACTION Provider, Abstract 09/16/2024 External Device Data STL ABSTRACTION Provider, Abstract 08/26/2024 External Device Data STL ABSTRACTION Provider, Abstract 08/19/2024 External Device Data STL ABSTRACTION Provider, Abstract 08/14/2024 External Device Data STL ABSTRACTION Provider, Abstract 08/13/2024 External Device Data STL ABSTRACTION Provider, Abstract 08/12/2024 External Device Data STL ABSTRACTION Provider, Abstract [...] on file Legal Sex Female 5:39 AM MANUFACTURING PLANT MANAGER Gender Identity Not on file Sexual Orientation Not on file 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 Not on file Not on file Not on file Last Filed Vital Signs Vital Sign Reading Time Taken Comments Blood Pressure 104/57 06/20/2024 11:31 AM CDT Pulse 68 06/20/2024 11:31 AM CDT Temperature 35.8 C (96.4 F) 06/20/2024 11:31 AM CDT Respiratory Rate 16 06/20/2024 11:3 1 AM CDT Oxygen Saturation 92% 06/20/2024 11: 31 AM CDT Inhaled Oxygen Concentration - - Weight 126.6 kg (279 lb 3.2 oz) 025 11:31 AM CDT Height 165.1 cm (5' 5) 12/12/2021 11:4 6 AM CDT Body Mass Index 46.46 12/12/2021 11:46 AM CDT Plan of Treatment Upcoming Encounters Date Type Department Care Team (Late st Contact Info) Description 10/23/2024 3:45 PM CDT Office Visit [facility] Oncology and Hematology - [place] [address] [facility] [address] [place] [address] Saud Chance MD [address] [facility] [address] [place] [address] Health Maintenance Due Date Last Done Comments DTAP/TDAP/TD VACCINES (1 - Tdap) 1960 PNEUMOCOCCAL VACCINE 50+ YEARS (1 of 1 - PCV) 11/21/18 92 ZOSTER VACCINE (1 of 2) 11/22/1991 OSTEOPOROSIS SCREENING 2006 RSV VACCINE (60+ or ) (1 - 1-dose 75+ series) 2016 INFLUENZA VACCINE (#1) 2024 Insurance [facility] [id number] [facility] [id number] Care Teams Wind Field Manager Relationship Specialty Start Date End Date Brody Bhatia MD [address] [place] [address] PCP - General Internal Medicine 10/01/15
--- OUTSIDE RECORDS SUMMARY | 2024-10-09 07:11 | XMS_ITS | Encounter Summary ---
Author Organization [facility] Address 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 Gender Identity Not on file Sexual Orientation Not on file documented as of this encounter Plan of Treatment Upcoming Encounters Date Type Department Care Team (Late st Contact Info) Description 10/23/2024 3:45 PM CDT Office Visit [facility] Oncology and Hematology - [place] [address] [facility] [address] [place] [address] Saud Chance MD [address] [facility] [address] [place] [address] documented as of this encounter [...] INTERFACE SYSTEM - 08/04/2008 11:58 AM CDT [facility] [address] [place], [place] [address] Admit Date: 07/23/2008 NASIM ROJAS Sex: F Admit Prov: GENEKOLETARAH Date: 1940 Primary Care Prov: PCP, UNKNOWN CMRN: [id number] Room: [facility] SSN: [id number] IMAGING SERVICES Ordering Prov: TARAH MILLS Accession Number: [id number] Addendum ADDENDUM TO PROCEDURE NOTE OF 07/23/2008: [...] Historical / Josh Ariza MD - 08/04/[address] [address] Admit Date: 07/23/2008 NASIM ROJAS Sex: F Admit Prov: MADISYNTARAH DIAZ Date: 1940 Primary Care Prov: PCP, UNKNOWN CMRN: [id number] Room: [facility] SSN: [address] [place] [address] IMAGING SERVICES Ordering Prov: TARAH MILLS Addendum [...] Betadine. Under 1% local lidocaine anesthesia a MEPS Real-Timeiatastype localization needle was placed with mediolateral approach. [...] AM CDT Narrative 07/23/2008 8:45 PM CDT [facility] [address] [place], [place] [address] Admit Date: 07/23/2008 NASIM ROJAS: F Admit Prov: TARAH MILLS Date: 1940 Primary Care Prov: PCP, UNKNOWN CMRN: [id number] [facility] [address] [place] [address] IMAGING SERVICES Ordering Prov: TARAH MILLS Accession Number: [id number] Interpretation LEFT BREAST SPECIMEN RADIOGRAPH 07/23/2008 History: [...] AMK Procedure Note Provider, Historical - 07/23/2008 [facility] [address] [place], [place] [address] Admit Date: 07/23/2008 NASIM ROJAS Sex: F Admit Prov: TARAH MILLS Date: 1940 Primary Care Prov: PCP, UNKNOWN CMRN: [id number] [facility] [address] [place] [address] IMAGING SERVICES Ordering Prov: TARAH MILLS Interpretation LEFT BREAST SPECIMEN RADIOGRAPH 07/23/2008 History: [...] AM CDT Narrative 07/23/2008 8:45 PM CDT [facility] [address] [place], [place] [address] Admit Date: 07/23/2008 NASIM ROJAS Sex: F Admit Prov: TARAH MILLS Date: 1940 Primary Care Prov: PCP, UNKNOWN CMRN: [id number] Room: [facility] SSN: [id number] IMAGING SERVICES Ordering Prov: TARAH MILLS Accession Number: [id number] Interpretation LEFT BREAST PREOPERATIVE NEEDLE LOCALIZATION USING [...] AMK Procedure Note Provider, Historical - 07/23/2008 [facility] [address] [facility] [address] [place], [place] [address] Admit Date: 07/23/2008 NASIM ROJAS Sex: F Admit Prov: TARAH MILLS Date: 1940 Primary Care Prov: PCP, UNKNOWN CMRN: [id number] Room: [facility] SSN: [id number] IMAGING SERVICES Ordering Prov: TARAH MILLS Interpretation [...] Betadine. Under 1% local lidocaine anesthesia a [address] Ghiatastype localization needle was placed with mediolateral [...] AM CDT Narrative 07/23/2008 8:45 PM CDT [place] [address] [place], [place] [address] Admit Date: 07/23/2008 NASIM ROJAS Sex: F Admit Prov: TARAH MILLS Date: 1940 Primary Care Prov: PCP, UNKNOWN CMRN: [id number] Room: [facility] SSN: [id number] IMAGING SERVICES Ordering Prov: TARAH MILLS Accession Number: [id number] Interpretation LEFT BREAST PREOPERATIVE NEEDLE LOCALIZATION USING [...] AMK Procedure Note Provider, Historical - 07/24/2008 [facility] [address] [place], [place] [address] Admit Date: 07/23/2008 NASIM ROJAS Sex: F Admit Prov: GENEKOLETARAH Date: 1940 Primary Care Prov: PCP, UNKNOWN CMRN: [id number] Room: [facility] SSN: [id number] IMAGING SERVICES Ordering Prov: TARAH MILLS Interpretation [...] Betadine. Under 1% local lidocaine anesthesia a [address] Ghiatastype localization needle was placed with mediolateral [...] unspecified documented in this encounter Care Teams Roughener Relationship Specialty Start Date End Date Brody Bhatia MD [address] [place] [phone] PCP - General Internal Medicine 10/01/15 documented as of this encounter
== END 2024-10-09 07:05 | disposition home or self-care (01) ==
PROVIDERS: PCP Emergency Medicine; Visit Provider Psychiatry & Neurology Neurology
DX: I63.9 Cerebral infarction, unspecified (principal); I65.23 Occlusion and stenosis of bilateral carotid arteries
CPT/HCPCS: 93880

== ENCOUNTER 2024-10-20 07:26 | Outpatient (CLI) | payer MEDICARE, SELFPAY ==
--- OUTSIDE RECORDS SUMMARY | 2024-10-20 07:29 | XMS_ITS | Clinical Summary ---
Author Organization [facility] Administrative Offices Address [address] [place] [address] Care Team Providers Care Automotive Fuel Injection Servicer Name Role Phone Brody Bhatia MD Primary Care Provider [phone] Allergies No known active allergies Medications IBUPROFEN PO Take by mouth. Prn for knee pain. Active MULTIVITAMINS WITH FLUORIDE (MULTI VIT-FLUORIDE ORAL) Take by mouth. Activ e OMEGA-3 FATTY ACIDS (FISH OIL ORAL) Take by mouth. Activ e fluticasone (FLONASE) 50 mcg/spray [place], Suspension 4 Active metFORMIN (GLUCOPHAGE) 500 mg [...] Bhatia MD Referring Provider: Brody Bhatia MD [address] [facility] [address] [place] [phone] Other: Problem Noted Date Diagnosed Date Encounter for screening mammogram for high-risk patient 10/05/2015 Diabetes 11/11/2008 HTN (hypertension) 11/11/2008 Overview (04/19/2010): Updating IMO/ICD9 Code and Description Hypothyroidism 11/11/2008 S/P TKR (total knee replacement) 11/11/2008 Metastatic breast cancer 11/11/2008 Overview (12/20/2012): 07/16/07 Stage I ( T1c N0 Mx) IDC LEFT breast ER 95% [place] 96% HER2/john - Ki67 44% S/p lumpectomy [...] year Assessment & Plan (05/24/2009 4:21 PM CLINICAL NURSE SPECIALIST): Mammogram due in July WEIGHT at last [...] Encounters Date Type Department Care Team Description 10/08/2024 External Device Data STL ABSTRACTION Provider, Abstract 10/07/2024 External Device Data STL ABSTRACTION Provider, [...] on file Legal Sex Female 5:39 AM CLINICAL NURSE SPECIALIST Gender Identity Not on file Sexual Orientation [...] Description 10/23/2024 3:45 PM CDT Office Visit [facility] Oncology and Hematology - [place] [address] [facility] [address] [place] [address] Saud Chance MD [address] [facility] [address] [place] [address] Health Maintenance Due Date Last Done Comments DTAP/TDAP/TD VACCINES (1 - Tdap) 1960 PNEUMOCOCCAL VACCINE 50+ YEARS (1 of 1 - PCV) 11/21/18 92 ZOSTER VACCINE (1 of 2) 11/22/1991 OSTEOPOROSIS SCREENING 2006 RSV VACCINE (60+ or ) (1 - 1-dose 75+ series) 2016 INFLUENZA VACCINE (#1) 2024 Insurance [facility] [id number] [facility] [id number] Care Teams Automotive Fuel Injection Servicer Relationship Specialty Start Date End Date Brody Bhatia MD [address] [place] [phone] PCP - General Internal Medicine 10/01/15
--- OUTSIDE RECORDS SUMMARY | 2024-10-20 07:29 | XMS_ITS | Encounter Summary ---
Author Organization [facility] Address 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 Gender Identity Not on file Sexual Orientation Not on file documented as of this encounter Plan of Treatment Upcoming Encounters Date Type Department Care Team (Late st Contact Info) Description 10/23/2024 3:45 PM CDT Office Visit [facility] Oncology and Hematology - [place] [address] [facility] [address] [place] [address] Saud Chance MD [address] [facility] [address] [place] [address] documented as of this encounter [...] INTERFACE SYSTEM - 08/04/2008 11:58 AM CDT [facility] [address] [place], [place] [address] Admit Date: 07/23/2008 NASIM ROJAS Sex: F Admit Prov: GENEKOLETARAH Date: 1940 Primary Care Prov: PCP, UNKNOWN CMRN: [id number] Room: [facility] SSN: [id number] IMAGING SERVICES Ordering Prov: TARAH MILLS Accession Number: [id number] Addendum ADDENDUM TO PROCEDURE NOTE OF 07/23/2008: [...] Historical / Josh Ariza MD - 08/04/[address] [address] Admit Date: 07/23/2008 NASIM ROJAS Sex: F Admit Prov: MADISYNTARAH DIAZ Date: 1940 Primary Care Prov: PCP, UNKNOWN CMRN: [id number] Room: [facility] SSN: [address] [place] [address] IMAGING SERVICES Ordering Prov: TARAH MILLS Addendum [...] Betadine. Under 1% local lidocaine anesthesia a RooTiatastype localization needle was placed with mediolateral approach. [...] AM CDT Narrative 07/23/2008 8:45 PM CDT [facility] [address] [place], [place] [address] Admit Date: 07/23/2008 NASIM ROJAS: F Admit Prov: TARAH MILLS Date: 1940 Primary Care Prov: PCP, UNKNOWN CMRN: [id number] [facility] [address] [place] [address] IMAGING SERVICES Ordering Prov: TARAH MILLS Accession Number: [id number] Interpretation LEFT BREAST SPECIMEN RADIOGRAPH 07/23/2008 History: [...] AMK Procedure Note Provider, Historical - 07/23/2008 [facility] [address] [place], [place] [address] Admit Date: 07/23/2008 NASIM ROJAS Sex: F Admit Prov: TARAH MILLS Date: 1940 Primary Care Prov: PCP, UNKNOWN CMRN: [id number] [facility] [address] [place] [address] IMAGING SERVICES Ordering Prov: TARAH MILLS Interpretation [...] AM CDT Narrative 07/23/2008 8:45 PM CDT [facility] [address] [place], [place] [address] Admit Date: 07/23/2008 NASIM ROJAS Sex: F Admit Prov: TARAH MILLS Date: 1940 Primary Care Prov: PCP, UNKNOWN CMRN: [id number] Room: [facility] SSN: [id number] IMAGING SERVICES Ordering Prov: TARAH MILLS Accession Number: [id number] Interpretation LEFT BREAST PREOPERATIVE NEEDLE LOCALIZATION USING [...] AMK Procedure Note Provider, Historical - 07/23/2008 [facility] [address] [facility] [address] [place], [place] [address] Admit Date: 07/23/2008 NASIM ROJAS Sex: F Admit Prov: TARAH MILLS Date: 1940 Primary Care Prov: PCP, UNKNOWN CMRN: [id number] Room: [facility] SSN: [id number] IMAGING SERVICES Ordering Prov: TARAH MILLS Interpretation [...] Betadine. Under 1% local lidocaine anesthesia a Legend of the Elf Ghiatastype localization needle was placed with mediolateral [...] AM CDT Narrative 07/23/2008 8:45 PM CDT [address] [place], [place] [address] Admit Date: 07/23/2008 NASIM ROJAS Sex: F Admit Prov: TARAH MILLS Date: 1940 Primary Care Prov: PCP, UNKNOWN CMRN: [id number] Room: [facility] SSN: [id number] IMAGING SERVICES Ordering Prov: TARAH MILLS Accession Number: [id number] Interpretation LEFT BREAST PREOPERATIVE NEEDLE LOCALIZATION USING [...] AMK Procedure Note Provider, Historical - 07/24/2008 [facility] [address] [place], [place] [address] Admit Date: 07/23/2008 NASIM ROJAS Sex: F Admit Prov: GENEKOLETARAH Date: 1940 Primary Care Prov: PCP, UNKNOWN CMRN: [id number] Room: [facility] SSN: [id number] IMAGING SERVICES Ordering Prov: TARAH MILLS Interpretation [...] Betadine. Under 1% local lidocaine anesthesia a Legend of the Elf Ghiatastype localization needle was placed with mediolateral [...] unspecified documented in this encounter Care Teams Surgical Technologist Relationship Specialty Start Date End Date Brody Bhatia MD [address] [place] [phone] PCP - General Internal Medicine 10/01/15 documented as of this encounter
--- OUTSIDE RECORDS SUMMARY | 2024-10-20 07:29 | XMS_ITS | Clinical Summary ---
Author Organization [facility] Address [address], [address] [address] Phone Care Team Providers Care Banquet Attendant Name Role Phone Unavailable Primary Care Provider [...] Health Maintenance Due Date Last Done Comments Hepatitis C Virus (HCV) Screening 1940 TdaP Immunization 1940 Mammogram 11/22/1951 Pneumococcal Immunization (5 0+ years) (1 of 1 - PCV) 11/22/1991 Zoster Immunization (1 of 2) 11/22/1991 Respiratory Syncytial Virus (RSV) Immunization (Adult) (1 - 1-dose 75+ series) 2016 SARS-COV-2 Immunization ( season) 2023 Influenza Immunization (#1) 2024 Hepatitis B Immunization Aged Out No longer eligible based on patient's age to complete this topic Human Papillomavirus (HPV) Immunization Aged Out No longer eligible b ased on patient's age to complete this topic Meningococcal Immunization (ACWY) Aged Out No longer eligible based on patient's age to complete this topic Rotavirus Immunization Aged Out No lo nger eligible based on patient's age to complete this topic
[2024-10-20 08:33] LABS: Hematocrit 33.5 % (37.0-47.0); Hemoglobin 10.9 g/dL (12.0-15.0); Immature Granulocyte Percent A 0.4 % (0-0.5); Lymphocytes Absolute Auto 0.79 K/mm3 (0.9-3.2); Mean Corpuscular HGB Conc 32.5 g/dl (32-36); Mean Corpuscular Hemoglobin 35.6 pg (26-34); Mean Corpuscular Volume 109.5 fl (80-100); Nucleated Red Blood Cells Absolute Auto 0.000 K/mm3 (0.0-0.012); Nucleated Red Blood Cells Perc 0.0 % (0.0-0.2); Platelet Count Result 135 k/mm3 (150-375); Red Blood Count 3.06 M/mm3 (4.2-5.4); White Blood Count 2.7 K/mm3 (4.5-10.0)
[2024-10-20 08:57] LABS: Alanine Aminotransferase 13 U/L (6-35); Albumin Level 3.9 g/dL (3.5-5.1); Alkaline Phosphatase 59 U/L (38-126); Anion Gap 10 mmol/L (4-12); Aspartate Amino Transferase 22 U/L (14-36); Bilirubin,Total 0.6 mg/dL (0.2-1.3); Blood Urea Nitrogen 20 mg/dL (7-17); Calcium 9.4 mg/dL (8.4-10.2); Carbon Dioxide 23 mmol/L (22-30); Chloride 105 mmol/L (98-107); Estimated Glomerular Filt Rate 51; Glucose 161 mg/dL (65-110); Potassium 4.0 mmol/L (3.4-5.0); Sodium 138 mmol/L (137-145); Total Protein 6.5 g/dL (6.3-8.2)
[2024-10-20 08:59] LABS: Macrocytosis 1+ (NORMAL)
== END 2024-10-20 07:27 | disposition home or self-care (01) ==
LOC: ANHLAB 07:27
PROVIDERS: PCP Emergency Medicine; Visit Provider Internal Medicine Hematology & Oncology
DX: C50.912 Malignant neoplasm of unspecified site of left female breast (principal); Z17.0 Estrogen receptor positive status [ER+]
CPT/HCPCS: 36415; 80053; 85025; 86300

== ENCOUNTER 2024-10-26 10:04 | Outpatient (CLI) | payer MEDICARE, SELFPAY ==
--- NOTE | ~2024-10-26 | CT_ITS ---
Clinical Indication: Breast cancer CT Scan of the Chest, Abdomen, and Pelvis with Contrast: Technique: Contiguous sections were acquired throughout the chest, abdomen, and pelvis after intraven ous administration of 100 cc of Omnipaque 350. Dose reduction technique was used on this scan by mary ann taveraing automated exposure control and iterative reconstruction technique. The dose-length product (DL P) was 1937.13 mGy-cm. Comparison: 02/26/2024 Findings: There is no evidence of any significant mediastinal, hilar or axillary lymphadenopathy. The mediastin al soft tissues appear normal. Minimal left pleural effusion present. No right pleural effusion. No pericardial effusion. Stable left upper lobe consolidation, suggestive of treated disease/post radiation change. Stable pos toperative change in the left breast noted. The liver, spleen, pancreas, gallbladder, adrenals and kidneys are within normal limits. No evidence of aortic aneurysm. No lymphadenopathy. No bowel obstruction or bowel wall thickening. There is no evidence to suggest acute appendicitis. Urinary bladder is unremarkable. No pelvic mass evident. No ascites. Impression: No evidence of active malignancy or metastatic disease. Stable post revision change and/or treated disease in the left upper lobe. Stable postoperative change left breast. Minimal left pleural effusion. Reviewed, dictated and finalized at location . Impression: No evidence of active malignancy or metastatic disease. Stable post revision change and/or treated disease in the left upper lobe. Stable postoperative change left breast. Minimal left pleural effusion.
--- OUTSIDE RECORDS SUMMARY | 2024-10-26 10:07 | XMS_ITS | Encounter Summary ---
Author Organization [facility] Address [address] [place] [address] Care Team Providers Care Gunstock Spray Unit Feeder Name Role Phone Brody Bhatia MD Primary Care Provider Encounter Details Date Type Department Care Team (Latest Contact Info) Description 07/23/2008 Outpatient Historical [facility] Tarah Mills MD [address] [place] [phone] Abnormal Mammogram, Unspecified Social History Tobacco Use Types Packs/Day Years Used Date Smoking Tobacco: Never Assessed Comments Unknown Sex and Gender Information Value Date Recorded Sex Assigned at Not on file 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 Gender Identity Not on file Sexual Orientation Not on file documented as of this encounter Plan of Treatment Upcoming Encounters Date Type Department Care Team (Late st Contact Info) Description 11/03/2024 4:30 PM CDT Telephone Check Up [facility] Oncology and Hematology - [place] [address] [place] [address] Saud Chance MD [address] [employer] [address] [place] [address] 01/27/2025 2:45 PM FOLDER MACHINE OPERATOR Office Visit [facility] Oncology and Hematology [place] [address] [place] [address] Saud Chance MD [address] [facility] [address] [place] [address] documented as of this encounter Procedures [...] INTERFACE SYSTEM - 08/04/2008 11:58 AM CDT [facility] [address] [place], [place] [address] Admit Date: 07/23/2008 SELINA ROJAS Sex: F Admit Prov: GENEKOLETARAH Date: 1940 Primary Care Prov: PCP, UNKNOWN CMRN: [id number] Room: [facility] SSN: [address] [place] [address] IMAGING SERVICES Ordering Prov: TARAH MILLS Accession Number: [id number] Addendum ADDENDUM TO PROCEDURE NOTE OF 07/23/2008: [...] Historical / Josh Ariza MD - 08/04/[address] [address] Admit Date: 07/23/2008 SELINA ROJAS Sex: F Admit Prov: TARAH MILLS Date: 1940 Primary Care Prov: PCP, UNKNOWN CMRN: [id number] Room: [facility] SSN: [id number] IMAGING SERVICES Ordering Prov: TARAH MILLS Addendum [...] Betadine. Under 1% local lidocaine anesthesia a HotPadsiatastype localization needle was placed with mediolateral approach. [...] AM CDT Narrative 07/23/2008 8:45 PM CDT [address] [address] Admit Date: 07/23/2008 SELINA ROJAS Sex: F Admit Prov: GENEKOLETARAH Date: 1940 Primary Care Prov: PCP, UNKNOWN CMRN: [id number] [facility]: [id number] IMAGING SERVICES Ordering Prov: TARAH MILLS Accession Number: [id number] Interpretation LEFT BREAST SPECIMEN RADIOGRAPH 07/23/2008 History: [...] AMK Procedure Note Provider, Historical - 07/23/[address] [place], [place] [address] Admit Date: 07/23/2008 SELINA ROJAS Sex: F Admit Prov: MADISYNEMILY TARAH Date: 1940 Primary Care Prov: PCP, UNKNOWN CMRN: [id number] Room: [facility] SSN: [id number] IMAGING SERVICES Ordering Prov: TARAH MILLS Interpretation [...] AM CDT Narrative 07/23/2008 8:45 PM CDT [address] [address] Admit Date: 07/23/2008 SELINA ROJAS Sex: F Admit Prov: TARAH MILLS Date: 1940 Primary Care Prov: PCP, UNKNOWN CMRN: [id number] Room: [facility] SSN: [id number] IMAGING SERVICES Ordering Prov: TARAH MILLS Accession Number: [id number] Interpretation LEFT BREAST PREOPERATIVE NEEDLE LOCALIZATION USING [...] Under 1% local lidocaine anesthesia a Bard Workspotiatas type localization needle was placed with mediolateral [...] AMK Procedure Note Provider, Historical - 07/23/2008 [address] [place], [place] [address] Admit Date: 07/23/2008 SELINA ROJAS Sex: F Admit Prov: TARAH MILLS Date: 1940 Primary Care Prov: PCP, UNKNOWN CMRN: [id number] Room: [facility] SSN: [id number] IMAGING SERVICES Ordering Prov: TARAH MILLS Interpretation [...] Betadine. Under 1% local lidocaine anesthesia a HaveMyShift Ghiatastype localization needle was placed with mediolateral [...] AM CDT Narrative 07/23/2008 8:45 PM CDT [facility] [address] [place], [place] [address] Admit Date: 07/23/2008 SELINA ROJAS Sex: F Admit Prov: TARAH MILLS Date: 1940 Primary Care Prov: PCP, UNKNOWN CMRN: [id number] Room: [facility] SSN: [id number] IMAGING SERVICES Ordering Prov: TARAH MILLS Accession Number: [id number] Interpretation LEFT BREAST PREOPERATIVE NEEDLE LOCALIZATION USING [...] AMK Procedure Note Provider, Historical - 07/24/2008 [address] [place], [place] [address] Admit Date: 07/23/2008 SELINA ROJAS Sex: F Admit Prov: TARAH MILLS Date: 1940 Primary Care Prov: PCP, UNKNOWN CMRN: [id number] Room: [facility] SSN: [id number] IMAGING SERVICES Ordering Prov: TARAH MILLS Interpretation [...] Betadine. Under 1% local lidocaine anesthesia a HaveMyShift Ghiatastype localization needle was placed with mediolateral [...] unspecified documented in this encounter Care Teams Gunstock Spray Unit Feeder Relationship Specialty Start Date End Date Brody Bhatia MD [address] [place] [address] PCP - General Internal Medicine 10/01/15 documented as of this encounter
--- OUTSIDE RECORDS SUMMARY | 2024-10-26 10:07 | XMS_ITS | Encounter Summary ---
Author Organization [facility] [employer] [facility] Address [address] [place] [address] Care Team Providers Care Metal Loader Name Role Phone Brody Bhatia MD Primary Care Provider Encounter Details Date Type Department Care Team (Late Contact Info) Description 10/22/2024 Orders Only [facility] Oncology and Hematology [place] [address] [place] [address] Saud Chance MD [address] [place] [address] Social History Tobacco Use Types Packs/Day Years Used Date Smoking Tobacco: Never Smokeless Tobacco: Never Alcohol Use Standard Drinks/Week Comments No 0 (1 standard drink = 0.6 oz pur e alcohol) RARE Comments No Sex and Gender Information Value Date Recorded Sex Assigned at Not on file 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 Gender Identity Not on file Sexual Orientation Not on file 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 Not on file Not on file Not on file documented as of this encounter Plan of Treatment Upcoming Encounters Date Type Department Care Team (Late Contact Info) Description 11/03/2024 4:30 PM CDT Telephone Check Up [facility] Oncology and Hematology [place] [address] [place] [address] Saud Chance MD [address] [place] [address] 01/27/2025 2:45 PM DIRECTOR ELECTRICAL ENGINEERING Office Visit [facility] Oncology and Hematology - [place] [address] [place] [address] Saud Chance MD [address] [facility] [address] [place] [address] documented as of this encounter Procedures Procedure Name Priority Date/Time Associated Diagnosis Comments CHG CA 15 3 Routine 10/20/2024 12:04 PM CDT documented in this encounter Results * CHG CA 15 3 (10/20/2024 12:04 PM CDT) Saud Chance MD [facility] - LABORATORY Final Result documented in this encounter Visit Diagnoses Not on filedocumented in this encounter Care Teams Metal Loader Relationship Specialty Start Date End Date Brody Bhatia MD [address] [place] [address] PCP - General Internal Medicine 10/01/15 documented as of this encounter
--- OUTSIDE RECORDS SUMMARY | 2024-10-26 10:07 | XMS_ITS | Clinical Summary ---
Author Organization [facility] Address [address], [address] [address] Phone Care Team Providers Care Secret Service Agent Name Role Phone Unavailable Primary Care [...]
--- OUTSIDE RECORDS SUMMARY | 2024-10-26 10:07 | XMS_ITS | Clinical Summary ---
Author Organization [facility] Address [address] [place] [address] Care Team Providers Care Skimmer Name Role Phone Brody Bhatia MD Primary Care Provider Allergies No known active allergies Medications IBUPROFEN PO Take by mouth. Prn for knee pain. Active MULTIVITAMINS WITH FLUORIDE (MULTI VIT-FLUORIDE ORAL) Take by mouth. Activ e OMEGA-3 FATTY ACIDS (FISH OIL ORAL) Take by mouth. Activ e fluticasone (FLONASE) 50 mcg/spray [place], Suspension 4 Active metFORMIN (GLUCOPHAGE) 500 mg [...] Bhatia MD Referring Provider: Brody Bhatia MD [address] [facility] [address] [id number] Other: Problem Noted Date Diagnosed Date Encounter for screening mammogram for high-risk patient 10/05/2015 Diabetes 11/11/2008 HTN (hypertension) 11/11/2008 Overview (04/19/2010): Updating IMO/ICD9 Code and Description Hypothyroidism 11/11/2008 S/P TKR (total knee replacement) 11/11/2008 Metastatic breast cancer 11/11/2008 Overview (12/20/2012): 07/16/07 Stage I ( T1c N0 Mx) IDC LEFT breast ER 95% WV 96% HER2/john - Ki67 44% S/p lumpectomy [...] year Assessment & Plan (05/24/2009 4:21 PM TRAFFIC I MANAGER): Mammogram due in July WEIGHT at [...] Encounters Date Type Department Care Team Description 10/23/2024 3:45 PM CDT Office Visit [facility] Oncology and Hematology [facility] [address] [place] [address] Saud Chance MD Malignant neoplasm of left breast in female, estrogen receptor positive, unspecified site of breast (CMS/HCC) (Primary Dx) 10/22/2024 Orders Only [facility] Oncology and Hematology [facility] [address] [place] [address] Saud Chance MD 10/08/2024 External Device Data STL ABSTRACTION Provider, [...] on file Legal Sex Female 5:39 AM TRAFFIC I MANAGER Gender Identity Not on file Sexual Orientation Not on file 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 Not on file Not on file Not on file Last Filed Vital Signs Vital Sign Reading Time Taken Comments Blood Pressure 132/65 10/23/2024 3:27 PM CDT Pulse 91 10/23/2024 3:24 PM CDT Temperature 36.3 C (97.4 F) 10/23/2024 3:24 PM CDT Respiratory Rate 16 10/23/2024 3:24 PM CDT Oxygen Saturation 91% 10/23/2024 3:24 PM CDT Inhaled Oxygen Concentration - - Weight 127.6 kg (281 lb 6.4 oz) 10/23/2024 3:24 PM CDT Height 165.1 cm (5' 5) 12/12/2021 11:4 6 AM CDT Body Mass Index 46.83 12/12/2021 11:46 AM CDT Plan of Treatment Upcoming Encounters Date Type Department Care Team (Late st Contact Info) Description 11/03/2024 4:30 PM CDT Telephone Check Up [facility] Oncology and Hematology [facility] [address] [place] [address] Saud Chance MD [address] [place] [address] 01/27/2025 2:45 PM TRAFFIC I MANAGER Office Visit [facility] Oncology and Hematology [facility] [address] [place] [address] Saud Chance MD [address] [place] [address] Health Maintenance Due Date Last Done Comments DTAP/TDAP/TD VACCINES (1 - Tdap) 1960 PNEUMOCOCCAL VACCINE 50+ YEARS (1 of 1 - PCV) 11/21/18 92 ZOSTER VACCINE (1 of 2) 11/22/1991 OSTEOPOROSIS SCREENING 2006 RSV VACCINE (60+ or ) (1 - 1-dose 75+ series) 2016 INFLUENZA VACCINE (#1) 2024 Procedures Procedure Name Priority Date/Time Associated Diagnosis Comments CHG CA 15 3 Routine 10/20/2024 12:04 PM CDT from Last 3 Months Results * CHG CA 15 3 (10/20/2024 12:04 PM CDT) Saud Chance MD [facility] - LABORATORY Final Result from Last 3 Months Insurance Care Teams Skimmer Relationship Specialty Start Date End Date Brody Bhatia MD [address] [place] [address] PCP - General Internal Medicine 10/01/15
== END 2024-10-26 10:05 | disposition home or self-care (01) ==
PROVIDERS: PCP Emergency Medicine; Visit Provider Internal Medicine Hematology & Oncology
DX: C50.912 Malignant neoplasm of unspecified site of left female breast (principal); Z17.0 Estrogen receptor positive status [ER+]; J90 Pleural effusion, not elsewhere classified; Z98.890 Other specified postprocedural states
CPT/HCPCS: 71260; 74177; Q9967

== ENCOUNTER 2025-01-19 07:47 | Outpatient (CLI) | payer MEDICARE, SELFPAY ==
--- OUTSIDE RECORDS SUMMARY | 2025-01-19 07:58 | XMS_ITS | Clinical Summary ---
Author Organization [facility] Administrative Offices Address [address] [place] [address] Care Team Providers Care Bellhop Captain Name Role Phone Brody Bhatia MD Primary Care Provider Allergies No known active allergies Medications IBUPROFEN PO Take by mouth. Prn for knee pain. Active MULTIVITAMINS WITH FLUORIDE (MULTI VIT-FLUORIDE ORAL) Take by mouth. Activ e OMEGA-3 FATTY ACIDS (FISH OIL ORAL) Take by mouth. Activ e fluticasone (FLONASE) 50 mcg/spray Prosperity, Suspension 06/12/19 14 Active metFORMIN (GLUCOPHAGE) 500 mg tablet 09/08/19 16 Active levothyroxine 150 mcg tablet 09/29/19 16 Active ergocalciferol (VITAMIN D2) 50,000 unit capsule 08/31/19 16 Active amLODIPine (NORVASC) 5 mg tablet 09/21/19 16 Active valsartan-hydr oCHLOROthiazid e (DIOVAN HCT) 160-12.5 mg tablet 09/16/19 17 Active montelukast (SINGULAIR) 10 mg tablet 08/27/19 17 Active aspirin (WENDY CHEWABLE) 81 mg Tablet, Chewable Take 81 mg by mouth daily. Active atorvastatin (LIPITOR) 20 mg tablet 05/07/19 22 Active amLODIPine (NORVASC) 10 mg tablet amlodipine 10 mg tablet Active palbociclib (Ibrance) 125 mg capsule Take 1 Capsule (125 mg) by mouth daily with breakfast. Take 1 capsule for 21 days on and 7 days off 21 Capsule 6 06/03/19 22 Active losartan-hydro CHLOROthiazide (HYZAAR) 50-12.5 mg tablet 09/06/19 22 Active losartan (COZAAR) 50 mg tablet 09/15/19 22 Active azithromycin (ZITHROMAX) 250 mg tablet 04/25/19 23 Active anastrozole (ARIMIDEX) 1 mg tablet TAKE 1 TABLET (1 MG) BY MOUTH DAILY. 90 Tablet 3 02/14/20 24 Active palbociclib (Ibrance) 125 mg tablet TAKE 1 TABLET BY MOUTH DAILY WITH BREAKFAST FOR 21 DAYS ON, THEN 7 DAYS OFF. 21 Tablet 4 12/25/19 25 Active palbociclib (Ibrance) 125 mg tablet TAKE 1 TABLET BY MOUTH DAILY WITH BREAKFAST FOR 21 DAYS ON, THEN 7 DAYS OFF. 21 Tablet 12/05/19 25 025 Discontinued Active Problems Patient Care Coordination No te Formatting of this note migh t be different from the original. Primary Care: Brody Bhatia MD Referring Provider: Brody Bhatia MD [address] [place] [address] Other: Problem Noted Date Diagnosed Date Encounter for screening mammogram for high-risk patient 10/05/2015 Diabetes 11/11/2008 HTN (hypertension) 11/11/2008 Overview (04/19/2010): Updating IMO/ICD9 Code and Description Hypothyroidism 11/11/2008 S/P TKR (total knee replacement) 11/11/2008 Metastatic breast cancer 11/11/2008 Overview (12/20/2012): 07/16/07 Stage I ( T1c N0 Mx) IDC LEFT breast ER 95% MA 96% HER2/john - Ki67 44% S/p lumpectomy and SLND s/p TC x 4 (allergic rxn c2) 12/31/07 Radiation complete 02/07/08 ARIMIDEX x 5 yaers Assessment & Plan (12/20/2012 11:13 AM CDT): 5 1/2 years out On AI - OK TO STOP mammo arpril Assessment & Plan (12/15/2011 3:11 PM CDT): 4 1/2 years out On AI ROV 1 year mammo yamila Assessment & Plan (12/09/2010 2:17 PM CDT): 3 yeas out On AI MEGGAN ROV 1 year Mammo June [address] Weber Losing weight with WW Assessment & Plan (12/03/2009 3:50 PM CDT): 2 yrs out On AI MEGGAN ROV 1 year Assessment & Plan (05/24/2009 4:21 PM HEDGE FUND ACCOUNTANT): Mammogram due in July WEIGHT at last [...] Encounters Date Type Department Care Team Description 01/06/2025 External Device Data STL ABSTRACTION Provider, Abstract 12/30/2024 External Device Data STL ABSTRACTION Provider, Abstract 12/24/2024 Refill [facility] [address] [place] [phone] Saud Chance MD 12/09/2024 External Device Data STL ABSTRACTION Provider, Abstract 12/04/2024 Refill [facility] - [place] [address] [place] [address] Saud Chance MD 11/11/2024 External Device Data STL ABSTRACTION Provider, Abstract 11/03/2024 4:30 PM CDT Telephone Check Up [facility] [address] [place] [phone] Saud Chance MD Malignant neoplasm of left breast in female, estrogen receptor positive, unspecified site of breast (CMS/HCC) (Primary Dx) 10/29/2024 Orders Only [facility] - [place] [address] [place] [phone] Saud Chance MD 10/28/2024 External Device Data STL ABSTRACTION Provider, Abstract 10/23/2024 3:45 PM CDT Office Visit [facility] - [place] [address] [place] [address] Saud Chance MD Malignant neoplasm of left breast in female, estrogen receptor positive, unspecified site of breast (CMS/HCC) (Primary Dx) 10/22/2024 Orders Only [facility] - [place] [address] [place] [phone] Saud Chance MD from Last 3 Months Family History Medical [...] on file Legal Sex Female 5:39 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 FUND 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 Gender Identity Not on file Sexual Orientation [...] Care Team (Late st Contact Info) Description 01/27/2025 2:45 PM HEDGE FUND ACCOUNTANT Office Visit [facility] - [place] [address] [facility] [address] [place] [address] Saud Chance MD [address] [facility] [address] [place] [address] Health Maintenance Due Date Last Done Comments DTAP/TDAP/TD VACCINES (1 - Tdap) 1960 PNEUMOCOCCAL VACCINE 50+ YEARS (1 of 1 - PCV) 11/21/18 92 ZOSTER VACCINE (1 of 2) 11/22/1991 OSTEOPOROSIS SCREENING 2006 RSV VACCINE (60+ or ) (1 - 1-dose 75+ series) 2016 INFLUENZA VACCINE (#1) 2024 Procedures Procedure Name Priority Date/Time Associated Diagnosis Comments CT CHEST ABDOMEN PELVIS W CONT Routine 10/26/2024 2:28 PM CDT [facility]G CA 15 3 Routine 10/20/2024 12:04 PM CDT from Last 3 Months Results * CT CHEST ABDOMEN PELVIS W CONT (10/26/2024 2:28 PM CDT) Anatomical Region Laterality Modality Chest Computed Tomogra phy us Saud Chance MD CT ORDERABLES Final Result * CHG CA 15 3 (10/20/2024 12:04 PM CDT) us Saud Chance MD [facility] - LABORATORY Final Result from Last 3 Months Insurance [facility] [id number] Member Subscriber Plan / Payer (Ef fective 2020-Present) Name:Selina Qiu Relation to Subscriber:Self Name:Selina Qiu Payer ID:[id number] (NAIC) Type:PPO Address: [place] [id number] [facility] [id number] Care Teams Bellhop Captain Relationship Specialty Start Date End Date Brody Bhatia MD [address] [place] [address] PCP - General Internal Medicine 10/01/15
--- OUTSIDE RECORDS SUMMARY | 2025-01-19 07:58 | XMS_ITS | Encounter Summary ---
Author Organization [facility] Address [address] [place] [address] Care Team Providers Care Assistant Statistician Name Role Phone Brody Bhatia MD Primary Care Provider Encounter Details Date Type Department Care Team (Latest Contact Info) Description 07/23/2008 Outpatient Historical [facility] Tarah Mills MD [address] [place] [phone] Abnormal Mammogram, Unspecified Social History Tobacco Use Types Packs/Day Years Used Date Smoking Tobacco: Never Assessed Comments Unknown Sex and Gender Information Value Date Recorded Sex Assigned at Not on file Legal Sex Female 5:39 AM RN 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 Gender Identity Not on file Sexual Orientation Not on file documented as of this encounter Plan of Treatment Upcoming Encounters Date Type Department Care Team (Late st Contact Info) Description 01/27/2025 2:45 PM RN 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 Office Visit [facility] Oncology and Hematology - [place] [address] [facility] [address] [place] [address] Saud Chance MD [address] [facility] [address] [place] [address] documented as of this encounter [...] INTERFACE SYSTEM - 08/04/2008 11:58 AM CDT [facility] [address] [place], [place] [address] Admit Date: 07/23/2008 NASIM ROAJS Sex: F Admit Prov: GENEKOLETARAH Date: 1940 Primary Care Prov: PCP, UNKNOWN CMRN: [id number] Room: [facility] SSN: [id number] IMAGING SERVICES Ordering Prov: TARAH MILLS Accession Number: [id number] Addendum ADDENDUM TO PROCEDURE NOTE OF 07/23/2008: [...] Historical / Josh Ariza MD - 08/04/[address] [address] Admit Date: 07/23/2008 NASIM ROJAS Sex: F Admit Prov: GENETARAH Date: 1940 Primary Care Prov: PCP, UNKNOWN CMRN: [id number] Room: [facility] SSN: [address] [place] [address] IMAGING SERVICES Ordering Prov: TARAH MILLS Addendum [...] Betadine. Under 1% local lidocaine anesthesia a [employer] localization needle was placed with mediolateral approach. [...] AM CDT Narrative 07/23/2008 8:45 PM CDT [facility] [address] [place], [place] [address] Admit Date: 07/23/2008 NASIM ROJAS Sex: F Admit Prov: TARAH MILLS Date: 1940 Primary Care Prov: PCP, UNKNOWN CMRN: [id number] [facility] [address] [place] [address] IMAGING SERVICES Ordering Prov: TARAH MILLS Accession Number: [id number] Interpretation LEFT BREAST SPECIMEN RADIOGRAPH 07/23/2008 History: [...] AMK Procedure Note Provider, Historical - 07/23/2008 [facility] [address] [place], [place] [address] Admit Date: 07/23/2008 NASIM ROJAS Sex: F Admit Prov: TARAH MILLS Date: 1940 Primary Care Prov: PCP, UNKNOWN CMRN: [id number] [facility] [address] [place] [address] IMAGING SERVICES Ordering Prov: TARAH MILLS Interpretation [...] AM CDT Narrative 07/23/2008 8:45 PM CDT [facility] [address] [place], [place] [address] Admit Date: 07/23/2008 NASIM ROJAS Sex: F Admit Prov: TARAH MILLS Date: 1940 Primary Care Prov: PCP, UNKNOWN CMRN: [id number] Room: [facility] SSN: [id number] IMAGING SERVICES Ordering Prov: TARAH MILLS Accession Number: [id number] Interpretation LEFT BREAST PREOPERATIVE NEEDLE LOCALIZATION USING [...] AMK Procedure Note Provider, Historical - 07/23/2008 [facility] [address] [facility] [address] [place], [place] [address] Admit Date: 07/23/2008 NASIM ROJAS Sex: F Admit Prov: TARAH MILLS Date: 1940 Primary Care Prov: PCP, UNKNOWN CMRN: [id number] Room: [facility] SSN: [id number] IMAGING SERVICES Ordering Prov: TARAH MILLS Interpretation [...] Betadine. Under 1% local lidocaine anesthesia a Outside.in [employer] localization needle was placed with mediolateral [...] AM CDT Narrative 07/23/2008 8:45 PM CDT [facility] [address] [place], [place] [address] Admit Date: 07/23/2008 NASIM ROJAS Sex: F Admit Prov: TARAH MILLS Date: 1940 Primary Care Prov: PCP, UNKNOWN CMRN: [id number] Room: [facility] SSN: [id number] IMAGING SERVICES Ordering Prov: TARAH MILLS Accession Number: [id number] Interpretation LEFT BREAST PREOPERATIVE NEEDLE LOCALIZATION USING [...] AMK Procedure Note Provider, Historical - 07/24/2008 [facility] [address] [place], [place] [address] Admit Date: 07/23/2008 NASIM ROJAS Sex: F Admit Prov: GENEKOLETARAH Date: 1940 Primary Care Prov: PCP, UNKNOWN CMRN: [id number] Room: [facility] SSN: [id number] IMAGING SERVICES Ordering Prov: TARAH MILLS Interpretation [...] Betadine. Under 1% local lidocaine anesthesia a Outside.in [employer] localization needle was placed with mediolateral [...] unspecified documented in this encounter Care Teams Assistant Statistician Relationship Specialty Start Date End Date Brody Bhatia MD [address] [place] [phone] PCP - General Internal Medicine 10/01/15 documented as of this encounter
--- OUTSIDE RECORDS SUMMARY | 2025-01-19 07:58 | XMS_ITS | Clinical Summary ---
Author Organization [facility] Address [address], [address] [address] Phone Care Team Providers Care Riverboat Master Name Role Phone Unavailable Primary Care Provider [...] 1-dose 75+ series) 2016 Influenza Immunization (#1) 2024 SARS-COV-2 Immunization ( season) 2024 Hepatitis B Immunization Aged Out No [...]
[2025-01-19 08:37] LABS: Hematocrit 35.2 % (37.0-47.0); Hemoglobin 11.2 g/dL (12.0-15.0); Immature Granulocyte Percent A 0.3 % (0-0.5); Lymphocytes Absolute Auto 0.98 K/mm3 (0.9-3.2); Mean Corpuscular HGB Conc 31.8 g/dl (32-36); Mean Corpuscular Hemoglobin 35.3 pg (26-34); Mean Corpuscular Volume 111.0 fl (80-100); Nucleated Red Blood Cells Absolute Auto 0.000 K/mm3 (0.0-0.012); Nucleated Red Blood Cells Perc 0.0 % (0.0-0.2); Platelet Count Result 194 k/mm3 (150-375); Red Blood Count 3.17 M/mm3 (4.2-5.4); White Blood Count 3.6 K/mm3 (4.5-10.0)
[2025-01-19 08:59] LABS: Hypochromasia 1+; Macrocytosis 1+ (NORMAL); Schistocytes None Seen
[2025-01-19 09:02] LABS: Alanine Aminotransferase 14 U/L (6-35); Albumin Level 4.0 g/dL (3.5-5.1); Alkaline Phosphatase 75 U/L (38-126); Anion Gap 6 mmol/L (4-12); Aspartate Amino Transferase 22 U/L (14-36); Bilirubin,Total 0.6 mg/dL (0.2-1.3); Blood Urea Nitrogen 21 mg/dL (7-17); Calcium 9.4 mg/dL (8.4-10.2); Carbon Dioxide 29 mmol/L (22-30); Chloride 100 mmol/L (98-107); Estimated Glomerular Filt Rate 52; Glucose 139 mg/dL (65-110); Potassium 4.3 mmol/L (3.4-5.0); Sodium 135 mmol/L (137-145); Total Protein 6.8 g/dL (6.3-8.2)
== END 2025-01-19 07:48 | disposition home or self-care (01) ==
LOC: ANHLAB 07:52
PROVIDERS: PCP Emergency Medicine; Visit Provider Internal Medicine Hematology & Oncology
DX: C50.912 Malignant neoplasm of unspecified site of left female breast (principal); Z17.0 Estrogen receptor positive status [ER+]
CPT/HCPCS: 36415; 80053; 85025; 86300